=== PATIENT | male | born 1975 | race Caucasian/White ===

== ENCOUNTER 2016-09-02 16:17 | Emergency (ER) | payer SELFPAY ==
[~2016-09-02] VITALS: Ht 177.8 cm; Wt 90.7 kg
[~2016-09-02 16:17] MED LIST: AMOX-355 PO; CPR500T PO; DICL500C PO; HYDR-1231 PO; HYDR-3583 PO; HYDR-3714 PO; HYDR1TAB PO; NAPR-243 PO; PRX20T PO; SULF-222 PO; SULF1TAB35 PO; SULF1TAB38 PO; TRAM50TA2 PO; VANC5VIA5 IV
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
--- NOTE | 2016-09-02 17:07 | Diagnostic Imaging Report ---
EXAM: Three views of the left elbow. INDICATION: Left elbow Pain. FINDINGS: There is swelling in the posterior aspect of the elbow in the location of the olecranon and bursa. There is no significant widening of the anterior fat pad and no elevation of the posterior fat pad. No fracture or dislocation is seen. No radiopaque foreign body. IMPRESSION: Soft tissue swelling at the dorsal aspect at the elbow may relate to olecranon bursitis. Dictated by: Dictated on workstation # [id number]
[2016-09-02 17:15] LABS: BASOPHILS % (AUTO) 0 % (0-10); EOSINOPHILS # (AUTO) 0.1 10^3/uL (0.0-0.3); EOSINOPHILS % (AUTO) 1 % (0-10); LYMPHOCYTES # (AUTO) 2.5 X 10^3 (1.0-4.0); LYMPHOCYTES % (AUTO) 27 % (12-44); MEAN CORPUSCULAR HEMOGLOBIN 33 PG (25-34); MEAN CORPUSCULAR HGB CONC 35 G/DL (32-36); MEAN CORPUSCULAR VOLUME 94 FL (80-99); MEAN PLATELET VOLUME 10.4 FL (7.4-10.4); MONOCYTES % (AUTO) 11 % (0-12); NEUTROPHILS # (AUTO) 5.5 X 10^3 (1.8-7.8); NEUTROPHILS % (AUTO) 60 % (42-75); PLATELET COUNT 249 10^3/uL (130-400); RED BLOOD COUNT 4.46 10^6/uL (4.35-5.85); RED CELL DISTRIBUTION WIDTH 13.8 % (10.0-14.5); WHITE BLOOD COUNT 9.2 10^3/uL (4.3-11.0)
[2016-09-02 17:20] LABS: ERYTHROCYTE SEDIMENTATION RATE 13 MM/HR (0-15)
--- NOTE | 2016-09-02 17:21 | ED Upper Extremity ---
General Chief Complaint: Upper Extremity Stated Complaint: LEFT ELBOW PAIN Nursing Triage Note: L ELBOW PAIN AND SWELLING X3 MONTHS. HAS BEEN RECEIVING STEROID SHOTS WITH SOME RELIEF, BUT IS WORSE X3 DAYS. NOW C/O TINGLING TO HAND. Nursing Sepsis Screen: No Definite Risk History of Present Illness Time seen by provider: 16:40 Initial Comments Evaluation for left elbow pain, he is been seeing Carlos Arndt APRN for his left elbow pain. 10 weeks ago he had a steroid injection in the left elbow and then 6 weeks ago he had a second steroid injection in the left elbow. 2 weeks ago there was concern over possible infection he had an aspiration and culture of the left elbow and was started on Bactrim DS, He has taken 14 days of the Bactrim DS with continued symptoms of redness and pain in the left elbow Pain/Injury Location: right elbow Method of Injury: unknown Modifying Factors: Improves With Rest Allergies and Home Medications Allergies Coded Allergies: No Known Drug Allergies (Unverified , 08/25/11) Home Medications Cephalexin 500 Mg Capsule #28 500 MG PO QID Prescribed by: STEWART MUNGUIA on 09/02/161811 Hydrocodone Bit/Acetaminophen 1 Each Tablet #20 1 EACH PO Q4HR PRN Prescribed by: MARCIN CRAIG on 12/11/14 1012 Hydrocodone/Acetaminophen 1 Each Tablet #20 1 EACH PO Q4H PRN PRN PAIN Prescribed by: STEWART MUNGUIA on 09/02/16 181 Constitutional: no symptoms reported see HPI EENTM: no symptoms reported see HPI Respiratory: no symptoms reported see HPI Cardiovascular: no symptoms reported see HPI Gastrointestinal: see HPI Genitourinary: no symptoms reported see HPI Musculoskeletal: see HPI joint pain (left elbow) joint swelling (left olecranon bursa) muscle weakness (ulnar nerve distribution) Skin: see HPI other (erythema and warmth to left elbow) Psychiatric/Neurological: No Symptoms Reported See HPI Past Mowsckw-Lmftpy-Mvtxye Hx Patient Social History Alcohol Use: Regular Use Recreational Drug Use: No Smoking Status: Current Everyday Smoker Type Used: Cigarettes Recent Foreign Travel: No Contact w/Someone Who Travel: No Recent Infectious Disease Expo: No Recent Hopitalizations: No Immunizations Up To Date Tetanus Booster (TDap): Less than 5yrs Surgeries HX Surgeries: Yes (I/D LEFT HAND ABCESS, I/D RIGHT GROIN ABCESS) Surgeries: Vasectomy Respiratory Hx Respiratory Disorders: No Cardiovascular Hx Cardiac Disorders: No Neurological Hx Neurological Disorders: No Reproductive System Hx Reproductive Disorders: No Genitourinary Hx Genitourinary Disorders: No Gastrointestinal Hx Gastrointestinal Disorders: No Musculoskeletal Hx Musculoskeletal Disorders: No Endocrine Hx Endocrine Disorders: No HEENT HX ENT Disorders: No Cancer Hx Cancer: No Psychosocial Hx Psychiatric Problems: No Integumentary HX Skin/Integumentary Disorder: Yes (ABSCESS RIGHT THIGH) Blood Transfusions Hx Blood Disorders: No Reviewed Nursing Assessment Reviewed/Agree w Nursing PMH: Yes Family Medical History Significant Family History: No Pertinent Family Hx Family Medial History: Physical Exam Vital Signs Vital Sign - Last 12Hours 09/02/16 16:28 Temp 98.1 Pulse 83 Resp 18 B/P 145/101 Pulse Ox 97 Capillary Refill : Less Than 3 Seconds General Appearance: WD/WN no apparent distress HEENT: normal ENT inspection TMs normal pharynx normal Neck: non-tender full range of motion supple normal inspection Cardiovascular: normal peripheral pulses regular rate, rhythm Respiratory: chest non-tender lungs clear normal breath sounds Shoulder: normal inspection non-tender no evidence of injury normal ROM Elbow/Forearm: Left, bone tenderness, limited ROM (secondary to pain), pain, soft tissue tenderness, swelling (with fluctuance to the olecranon bursa and marked warmth) Wrist: Yes normal inspection, Yes non-tender, Yes no evidence of injury, Yes normal ROM Hand: normal inspection, Left (decreased sensation in ulnar nerve distribution) Neurologic/Tendon: normal motor functions sensory deficit (ulnar nerve distribution left upper extremity) Neurologic/Psychiatric: no motor/sensory deficits alert normal mood/affect oriented x 3 Skin: normal color warm/dry Lymphatic: no adenopathy other (2+ epitrochlear adenopathy left) Additional Procedures : Additional Procedures: Arthrocentesis Aspirating Progress The left elbow was prepped with Betadine 1 ml lidocaine 1% was used to anesthetize the skin. Using sterile technique, olecranon bursa was aspirated 1 ml of serosanguineous fluid was removed. Fluid was sent for cultures, aerobic and anaerobic. A bulky sterile dressing was applied with an Jaiden wrap. The patient did report improvement sensation ulnar nerve distribution left hand after the aspiration. Progress/Results/Core Measures Results/Orders Lab Results Laboratory Tests Test 09/02/16 16:53 Range/Units Alanine Aminotransferase (ALT/SGPT) 21 0-55 U/L Albumin 4.4 3.2-4.5 G/DL Alkaline Phosphatase 57 40-136 U/L Anion Gap 10 5-14 MMOL/L Aspartate Amino Transf (AST/SGOT) 22 5-34 U/L BUN/Creatinine Ratio 10 Basophils # (Auto) 0.0 0.0-0.1 10^3/uL Basophils (%) (Auto) 0 0-10 % Blood Urea Nitrogen 13 7-18 MG/DL C-Reactive Protein High Sensitivity 1.08 H 0.00-0.50 MG/DL Calcium Level 9.3 8.5-10.1 MG/DL Carbon Dioxide Level 23 21-32 MMOL/L Chloride Level 105 98-107 MMOL/L Creatinine 1.25 0.60-1.30 MG/DL Eosinophils # (Auto) 0.1 0.0-0.3 10^3/uL Eosinophils (%) (Auto) 1 0-10 % Erythrocyte Sedimentation Rate 13 0-15 MM/HR Estimat Glomerular Filtration Rate > 60 Glucose Level 91 70-105 MG/DL Hematocrit 42 40-54 % Hemoglobin 14.6 13.3-17.7 G/DL Lymphocytes # (Auto) 2.5 1.0-4.0 X 10^3 Lymphocytes (%) (Auto) 27 12-44 % Mean Corpuscular Hemoglobin 33 25-34 PG Mean Corpuscular Hemoglobin Concent 35 32-36 G/DL Mean Corpuscular Volume 94 80-99 FL Mean Platelet Volume 10.4 7.4-10.4 FL Monocytes # (Auto) 1.0 0.0-1.0 X 10^3 Monocytes (%) (Auto) 11 0-12 % Neutrophils # (Auto) 5.5 1.8-7.8 X 10^3 Neutrophils (%) (Auto) 60 42-75 % Platelet Count 249 130-400 10^3/uL Potassium Level 4.2 3.6-5.0 MMOL/L Red Blood Count 4.46 4.35-5.85 10^6/uL Red Cell Distribution Width 13.8 10.0-14.5 % Sodium Level 138 135-145 MMOL/L Total Bilirubin 0.6 0.1-1.0 MG/DL Total Protein 7.2 6.4-8.2 G/DL White Blood Count 9.2 4.3-11.0 10^3/uL My Orders Orders-STEWART MUNGUIA Elbow, Left, 3 Views (09/02/16 16:50) Cbc With Automated Diff (09/02/16 16:50) Comprehensive Metabolic Panel (09/02/16 16:50) Hs C Reactive Protein (09/02/16 16:50) Erythrocyte Sedimentation Rate (09/02/16 16:50) Lidocaine 1% Injection (Xylocaine 1% Inj (09/02/16 17:25) Wound Culture (09/02/16 17:41) Anaerobic Culture (09/02/16 17:41) Ceftriaxone Injection (Rocephin Injectio (09/02/16 18:15) Medications Given in ED Current Medications Medications Dose Ordered Sig/Gianna Route Start Time Stop Time Status Last Admin Dose Admin Ceftriaxone Sodium/Sodium Chloride 50 ml @ 100 mls/hr ONCE ONCE IV 09/02/16 18:15 09/02/16 18:41 DC 09/02/16 18:17 100 MLS/HR Vital Signs/I&O Vital Sign - Last 12Hours 09/02/16 09/02/16 16:28 18:40 Temp 98.1 98.1 Pulse 83 83 Resp 18 18 B/P 145/101 Pulse Ox 97 97 Blood Pressure Mean: 116 Progress Note : Time: 16:40 Progress Note Initial evaluation for olecranon bursitis left elbow, recommended x-ray and labs. Reevaluate after these are completed. Spoke with [facility] he had a culture and sensitivity done on August which grew staph aureus susceptible to the Bactrim DS that he's been taking. 1655 CBC normal with a WBC of 9.2; ESR 13; CRP 1.08; discussed results with the patient recommended aspiration of the left olecranon bursa, he verbalized agreement with this plan, a culture will be obtained from the fluid. 1730 discussed patient by phone with Dr. Rae, agreed to see the patient early next week for evaluation. Diagnostic Imaging Diagonstic Imaging: Xray Plain Films/CT/US/NM/MRI: elbow Comments NAME: JREI DAVE [facility] REC#: [id number] PT STATUS: REG ER : 1975 PHYSICIAN: STEWART MUNGUIA ADMIT DATE: 09/02/16/ER Draft Date of Exam:09/02/16 ELBOW, LEFT, 3 VIEWS EXAM: Three views of the left elbow. INDICATION: Left elbow Pain. FINDINGS: There is swelling in the posterior aspect of the elbow in the location of the olecranon and bursa. There is no significant widening of the anterior fat pad and no elevation of the posterior fat pad. No fracture or dislocation is seen. No radiopaque foreign body. IMPRESSION: Soft tissue swelling at the dorsal aspect at the elbow may relate to olecranon bursitis. Dictated on workstation # [id number] Dict: 09/02/16 1704 Trans: 09/02/16 1706 [facility] [id number] Interpreted by: AJIT CARRASCO MD Electronically signed by: Departure Impression Impression: Primary Impression: Olecranon bursitis of left elbow Disposition: 01 HOME, SELF-CARE Condition: Improved Departure-Patient Inst. Decision time for Depature: 17:50 Referrals: NO,LOCAL PHYSICIAN (PCP/Family) Primary Care Physician Patient Instructions: Olecranon Bursitis (DC) Add. Discharge Instructions: All discharge instructions reviewed with patient and/or family. Voiced understanding. Call Dr. Rae's office tomorrow, [phone] for appointment on 09/06/2016 or . Warm moist compressions to left elbow 10 minutes every 2-3 hours Return to emergency department if elbow pain worsens, the picture greater than 101, new complaints or concerns. Scripts Hydrocodone/Acetaminophen (Hydrocodon -Acetaminophen 5-325)1 Each Tablet1 Each PO Q4H PRN PAIN #20 TAB Ref 0 Prov:STEWART MUNGUIA 09/02/16 Cephalexin (Keflex)500 Mg [id number] Mg PO QID #28 CAP Prov:STEWART MUNGUIA 09/02/16 Copy Copies To 1: MARSHALL RAE MD Copies To 2: YVETTE RIVERA MD, AMY ARNP Sep 02, 2016 17:21
[2016-09-02] MEDS ORDERED: LIDOCAINE 1% INJ 20 ML (XYLOCAINE) VIAL INJ STA (17:25)
[2016-09-02 17:26] LABS: ALANINE AMINOTRANSFERASE 21 U/L (0-55); ALBUMIN 4.4 G/DL (3.2-4.5); ANION GAP 10 MMOL/L (5-14); ASPARTATE AMINO TRANSFERASE 22 U/L (5-34); BILIRUBIN,TOTAL 0.6 MG/DL (0.1-1.0); BLOOD UREA NITROGEN 13 MG/DL (7-18); BUN/CREATININE RATIO 10; CALCIUM 9.3 MG/DL (8.5-10.1); CARBON DIOXIDE 23 MMOL/L (21-32); CHLORIDE 105 MMOL/L (98-107); CREATININE SERUM 1.25 MG/DL (0.60-1.30); GFR ESTIMATED > 60; GLUCOSE 91 MG/DL (70-105); POTASSIUM 4.2 MMOL/L (3.6-5.0); SODIUM 138 MMOL/L (135-145); TOTAL PROTEIN 7.2 G/DL (6.4-8.2); hs C REACTIVE PROTEIN 1.08 MG/DL (0.00-0.50)
[2016-09-02] MEDS ORDERED: HYDR-3812 PO (18:12)
[2016-09-02] MEDS ORDERED: CEPH-507 PO (18:12)
[2016-09-02] MEDS ORDERED: cefTRIAXone INJECTION 1,000 MG in NS (IVPB) 50 ML IV ONE (18:15)
[2016-09-02 18:40] VITALS: BP 145/101
== END 2016-09-02 18:41 | disposition home or self-care (01) ==
LOC: EDUNIT# 16:17 → ER 16:19
DX: M70.32 Other bursitis of elbow, left elbow (principal); F17.210 Nicotine dependence, cigarettes, uncomplicated
CPT/HCPCS: 36415; 73080; 80053; 85025; 85652; 86141; 87070; 87075; 87077; 87186; 87205; 96365; 99284

== ENCOUNTER 2017-01-01 21:47 | Emergency (ER) | payer SELFPAY ==
[~2017-01-01] VITALS: Ht 177.8 cm; Wt 83.9 kg
[~2017-01-01 21:47] MED LIST changes: +CEPH-507 PO; +HYDR-3812 PO
[2017-01-01] MEDS ORDERED: HYDROcodone/APAP 7.5 MG/325 MG (LORTAB, LORCET PLUS) TABLET PO STA (22:13)
--- NOTE | 2017-01-01 22:33 | ED Lower Extremity ---
General Chief Complaint: Lower Extremity Stated Complaint: R LEG PAIN Nursing Triage Note: left ankle pain [place] Nursing Sepsis Screen: No Definite Risk History of Present Illness Time seen by provider: 22:10 Initial Comments Evaluation for left ankle pain. Patient reports 2 previous fractures to his right ankle. He is currently being treated for bursitis to his left elbow, using hydrocodone 10 mg Onset: this afternoon Pain/Injury Location: right ankle Method of Injury: fell Modifying Factors: Improves With Immobilization, Improves With Pain Medication , Improves With Rest Allergies and Home Medications Allergies Coded Allergies: No Known Drug Allergies (Unverified , 08/25/11) Home Medications Hydrocodone/Acetaminophen 1 Each Tablet, 1 EACH PO Q4H PRN for PAIN, #20 Ref 0 Prescribed by: STEWART MUNGUIA on 09/02/161811 Constitutional: no symptoms reported, see HPI Musculoskeletal: see HPI, joint pain (right ankle), joint swelling All Other Systems Reviewed Negative Unless Noted: Yes Past Ctzhngo-Mstbpe-Jbhpms Hx Patient Social History Alcohol Use: Occasionally Uses Recreational Drug Use: No Smoking Status: Current Everyday Smoker Type Used: Cigarettes 2nd Hand Smoke Exposure: Yes Recent Foreign Travel: No Contact w/Someone Who Travel: No Recent Infectious Disease Expo: No Recent Hopitalizations: No Immunizations Up To Date Tetanus Booster (TDap): Less than 5yrs Seasonal Allergies Seasonal Allergies: No Surgeries HX Surgeries: Yes (I/D LEFT HAND ABCESS, I/D RIGHT GROIN ABCESS) Surgeries: Vasectomy Respiratory Hx Respiratory Disorders: No Cardiovascular Hx Cardiac Disorders: No Neurological Hx Neurological Disorders: No Reproductive System Hx Reproductive Disorders: No Genitourinary Hx Genitourinary Disorders: No Gastrointestinal Hx Gastrointestinal Disorders: No Musculoskeletal Hx Musculoskeletal Disorders: No Endocrine Hx Endocrine Disorders: No HEENT HX ENT Disorders: No Cancer Hx Cancer: No Psychosocial Hx Psychiatric Problems: No Integumentary HX Skin/Integumentary Disorder: Yes (ABSCESS RIGHT THIGH) Blood Transfusions Hx Blood Disorders: No Reviewed Nursing Assessment Reviewed/Agree w Nursing PMH: Yes Family Medical History Significant Family History: No Pertinent Family Hx Family Medial History: Physical Exam Vital Signs Vital Sign - Last 12Hours 01/01/17 21:57 Temp 97.1 Pulse 98 Resp 18 B/P (MAP) 181/112 Pulse Ox 99 O2 Delivery Room Air Capillary Refill : Less Than 3 Seconds General Appearance: WD/WN, no apparent distress HEENT: PERRL/EOMI, normal ENT inspection, TMs normal, pharynx normal Neck: non-tender, full range of motion, supple, normal inspection Cardiovascular: normal peripheral pulses, regular rate, rhythm, no murmur Respiratory: chest non-tender, lungs clear, normal breath sounds Gastrointestinal: normal bowel sounds, non tender, soft Ankles: left ankle non-tender, left ankle normal inspection, left ankle normal range of motion, right ankle limited range of motion (secondary to pain), right ankle pain (distal fibula and deltoid ligament), right ankle soft tissue tenderness, right ankle swelling Neurologic/Tendon: normal sensation, normal motor functions, normal tendon functions, responds to pain Neurologic/Psychiatric: no motor/sensory deficits, alert, normal mood/affect, oriented x 3 Skin: normal color, warm/dry Progress/Results/Core Measures Results/Orders My Orders Orders - STEWART MUNGUIA Ankle, Right, 3 Views (01/01/17 21:56) Hydrocodone/Apap 7.5/325 Tab (Lortab 7. (01/01/17 22:13) Ibuprofen Tablet (Motrin Tablet) (01/01/17 23:01) Vital Signs/I&O Vital Sign - Last 12Hours 01/01/17 01/01/17 01/01/17 21:57 22:17 23:10 Temp 97.1 97.1 97.1 Pulse 98 82 Resp 18 18 B/P (MAP) 181/112 Pulse Ox 99 94 O2 Delivery Room Air Room Air Blood Pressure Mean: 135 Progress Note : Time: 22:10 Progress Note Initial evaluation for right ankle injury. Will obtain x-rays and reevaluate. 2229 x-ray show acute nondisplaced fracture in the distal fibula, chronic degenerative changes and healed fracture also present in the distal fibula. Joint spaces overall maintained in the right ankle no injuries to the medial aspect of the ankle. Discussed findings with the patient recommended a Cam Walker boot weightbearing as tolerated and follow-up with orthopedics. The patient agreed with this as he is seeing Jose Rao APRN in the past for his orthopedic concerns. Per K Tracs patient received hydrocodone/APAP 10/325 on 12/15/16 #112. Departure Impression Impression: Primary Impression: Fracture of distal fibula Qualified Codes: S82.831A - Other fracture of upper and lower end of right fibula, initial encounter for closed fracture Additional Impression: Ankle sprain Qualified Codes: S93.421A - Sprain of deltoid ligament of right ankle, initial encounter Disposition: 01 HOME, SELF-CARE Condition: Improved Departure-Patient Inst. Decision time for Depature: 22:30 Referrals: NO,LOCAL PHYSICIAN (PCP/Family) Primary Care Physician Patient Instructions: Ankle Fracture (DC), Ankle Sprain (DC) Add. Discharge Instructions: Wear boot at all times on right lower extremity. Ice to right ankle and elevate 20 minutes every 2 hours. Follow-up with orthopedics, at [facility]. Ibuprofen 600 mg every 8 hours for pain. Use hydrocodone that you have at home for pain Return to emergency department for increased pain, numbness or tingling in the right foot, or new problems. Schedule appointment this week with Carlos Arndt APRN for follow-up on hypertension. All discharge instructions reviewed with patient and/or family. Voiced understanding. Copy Copies To 1: ARMIDA RAO Copies To 2: YVETTE RIVERA MD, AMY ARNP Jan 01, 2017 22:33
[2017-01-01] MEDS ORDERED: IBUPROFEN 800 MG (MOTRIN) TAB PO STA (23:01)
[2017-01-01 23:10] VITALS: BP 167/113
--- NOTE | 2017-01-02 08:32 | Diagnostic Imaging Report ---
INDICATION: Ankle pain. 3 views were obtained. FINDINGS: There is an old healed fracture of the distal fibula. New acute nondisplaced fracture through this area cannot be excluded however as there is a persistent vague oblique lucency. There is some overlying soft tissue swelling. Plafonds and talar dome are intact. Ankle mortise is symmetric. IMPRESSION: Previously healed fracture of distal fibula with persistent lucency. Refracture through this area cannot be excluded. Additionally some overlying soft tissue swelling. Recommend clinical correlation. Dictated by: Dictated on workstation # [id number]
== END 2017-01-01 23:10 | disposition home or self-care (01) ==
LOC: EDUNIT# 21:47 → ER 21:49
DX: S82.831A Other fracture of upper and lower end of right fibula, initial encounter for closed fracture (principal); S93.402A Sprain of unspecified ligament of left ankle, initial encounter; F17.210 Nicotine dependence, cigarettes, uncomplicated; Z98.52 Vasectomy status; W17.89XA Other fall from one level to another, initial encounter; Y93.39 Activity, other involving climbing, rappelling and jumping off
CPT/HCPCS: 73610; 99283

== ENCOUNTER 2018-04-20 11:30 | Emergency (ER) | payer SELFPAY ==
[~2018-04-20] VITALS: Ht 177.8 cm; Wt 83.9 kg
[~2018-04-20 11:30] MED LIST changes: +ACHD5005 PO; -HYDR-3812 PO
--- OUTSIDE RECORDS SUMMARY | 2018-04-20 11:34 | XMS REPORT ---
Author Author CRISTOBAL CLEMENTS Organization [facility] Address [address] [place] [address] Care Team Providers Care Longwall Headgate Operator Name Role Phone CRISTOBAL CLEMENTS Unavailable PROBLEMS Type Condition ICD9-CM Code NQJ51-QC Code Onset Dates Condition Status SNOMED Code Problem Other chronic pain G89.29 Active 83946804 Problem Other chronic pain G89.29 Active 23934060 ALLERGIES No Information ENCOUNTERS Encounter Location Date Diagnosis [facility] [id number] [place] [address] [id number] Jun, Dental caries K02.9 [facility] [id number] [place] [address] [id number] Jun, Dental examination Z01.20 [facility] [id number] [place] [address] 32126- 2368 Feb, Other chronic pain G89.29 [facility] [address] [address]- 9600 Feb, Other chronic pain G89.29 [facility] [id number] [place] [address] 92908- 2831 Feb, [facility] [id number] [place] [address] 30387- 1067 Jan, Other chronic pain G89.29 [facility] [id number] [place] [address] 28905- 0315 Dec, Other chronic pain G89.29 [facility] [address] 68692- 2388 Dec, [facility] [id number] [place] [address] 45780- 0618 Nov, Other chronic pain G89.29 [facility] [address], [place] [address] 3983 Nov, Other chronic pain G89.29 [facility] [id number] [place] [address] 78712- 1866 October, Other chronic pain G89.29 [facility] [address] [place] [address] 78391- 3316 Sep, Other chronic pain G89.29 [facility] [id number] [place] [address] 17444 2546 Sep, Left elbow pain M25.522 and Other chronic pain G89.29 [facility] [id number] [place] [address] 82821- 3696 Aug, Other chronic pain G89.29 [facility] [id number] [place] [address] 79679- 0486 Aug, [facility] [id number] [place] [address] 67843- 0326 Aug, [facility] [id number] [place] [address] 75587- 8697 Aug, Abscess of elbow L02.419 [facility] [id number] [place] [address] 24685- 6310 Jul, Other chronic pain G89.29 [facility] [id number] [place] [address] 88085- 3838 Jul, Other chronic pain G89.29 and Bursitis of left elbow M70.32 [facility] [id number] [place] [address] 31890- 5429 Jun, Other bursal cyst, left elbow M71.322 ; Low back pain M54.5 and Other chronic pain G89.29 [facility] [address] [place] [address] 51322 2546 May, Other chronic pain G89.29 and Pain in left elbow M25.522 [facility] [id number] [place] [address] [id number] May, Dental caries K02.9 [facility] [address] 989695- 5286 May, Cellulitis of left upper extremity L03.114 [facility] [address] [id number] Mar, Encounter for dental examination Z01.20 [facility] [address] 033387 -5580 Jan, Poison delilah L23.7 [facility] [address] [id number] Sep, Dental examination Z01.20 [facility] [id number] [place] [address] 074022 -1376 Sep, Poison delilah dermatitis L23.7 [facility] [id number] [place] [address] 08577- 7894 Jul, Headache R51 ; Alcohol abuse F10.10 ; Marijuana abuse F12.10 and 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 [facility] [id number] [place] [address] 20991- 0741 Sep, [facility] [id number] [place] [address] 03739- 0323 Sep, [facility] [id number] [place] [address] 59755- 4664 Aug, [facility] [address] 62558- 8976 Aug, [facility] [id number] [place] [address] 38849- 5526 Aug, [facility] [id number] [place] [address] 38284- 6149 Aug, [facility] [address] [id number] [address]- 5228 Jul, 2014 [facility] [place] [facility] [address] [id number] [place] [address]- 6216 Jul, 2014 [facility] [place] [facility] [address] [id number] [place] [address]- 8696 16 Jul, 2014 [facility] [place] [facility] [address] [id number] [place] [address]- 7739 Jul, 2014 [facility] [place] [facility] [address] [id number] [place] [address]- 7426 Jul, 2014 [facility] [place] [facility] [address] [id number] [place] [address]- 2890 Jul, 2014 [facility] [place] [facility] [address] [id number] [place] [address]- 9187 Aug, [facility] [place] [facility] [address] [id number] [place] [address]- 1599 Aug, [facility] [place] [facility] [address] [id number] [place] [address]- 6981 Jul, [facility] [place] [facility] [address] [id number] [place] [address]- 7440 Jul, [facility] [place] [facility] [address] [id number] [place] [address]- 4110 Jun, [facility] [place] [facility] [address] [id number] [place] [address]- 0126 Jun, [facility] [place] [facility] [address] [id number] [place] [address]- 7131 Jun, [facility] [place] [facility] [address] [id number] [place] [address]- 1612 Jun, [facility] [place] [facility] [address] [id number] [place] [address]- 4854 Jun, [facility] [place] [facility] [address] [id number], [place] [address]- 8555 Jun, [facility] [place] [facility] [address] [id number] [place] [address]- 4334 Jun, [facility] [place] [facility] [address] [id number] [place] [address]- 5980 Jun, [facility] [place] [facility] [address] [id number] [place] [address]- 2311 May, [facility] [place] [facility] [address] [id number] [place] [address]- 2755 May, [facility] [place] [facility] [address] [id number] [place] 1219 Apr, [facility] [place] [facility] [address] [id number] [place] [address]- 5969 Apr, [facility] [place] [facility] [address] [id number] [place] [address]- 3234 Mar, [facility] [place] [facility] [address] [id number] [place] [address]- 7374 Mar, [facility] [place] [facility] [address] [id number] [place] [address]- 5445 Mar, [facility] [place] [facility] [address] [id number] [place] [address]- 3073 Mar, [facility] [place] [facility] [address] [id number], [place] [address]- 8022 Feb, [facility] [place] [facility] [address] [id number], [place] [address]- 3540 Dec, [facility] [place] [facility] [address] [id number] [place] [address]- 4771 Dec, [facility] [place] [facility] [address] [id number] [place] [address]- 4848 Nov, [facility] [place] [facility] [address] [id number] [place] [address]- 9929 Nov, [facility] [place] [facility] [address] [facility] [id number], [place] [address]- 2546 Nov, [facility] [address] [facility] [id number], [place] [address]- 7566 October, [facility] [address] [facility] [id number], [place] [address]- 2546 October, [facility] [address] [facility] [id number], [place] [address]- 2546 Aug, [facility] [address] [facility] [id number], [place] [address]- 2546 Aug, [facility] [address] [facility] [id number], [place] [address]- 5996 Jul, [facility] [address] [facility] [id number], [place] [address]- 4386 Jul, [facility] [address] [facility] [id number], [place] [address]- 4178 Apr, [facility] [address] [facility] [id number], [place] [address]- 4313 Apr, [facility] [address] [facility] [id number], [place] [address]- 1016 Mar, [facility] [address] [facility] [id number], [place] [address]- 7430 Dec, IMMUNIZATIONS No Known Immunizations SOCIAL HISTORY Never Assessed REASON FOR VISIT Controlled Med Refill 03/08/17 PLAN OF CARE VITAL SIGNS MEDICATIONS No Known Medications RESULTS No Results PROCEDURES No Known procedures INSTRUCTIONS MEDICATIONS ADMINISTERED No Known Medications MEDICAL (GENERAL) HISTORY Type Description Date Medical History Hx MRSA Surgical History vasectomy Surgical History surgery for Right leg infection removed Hospitalization History Hospitalization for surgery only
--- OUTSIDE RECORDS SUMMARY | 2018-04-20 11:34 | XMS REPORT ---
Author Author CRISTOBAL CLEMENTS Organization [facility] Address [address] [place] [address] Care Team Providers Care Meat Manager Name Role Phone CRISTOBAL CLEMENTS Unavailable PROBLEMS Type Condition ICD9-CM Code IJD56-UD Code Onset Dates Condition Status SNOMED Code Problem Other chronic pain G89.29 Active 23004152 Problem Other chronic pain G89.29 Active 11845506 Problem Encounter for dental examination Z01.20 Active 473885949 ALLERGIES Substance Reaction Event Type Date Status Latex Unknown Non Drug Allergy Jun, Active SOCIAL HISTORY No smoking Hx information available PLAN OF CARE VITAL SIGNS Height 70 in 2016-07-16 Weight 193 lbs 2016-07-16 Temperature 98.3 degrees Fahrenheit 2016-07-16 Heart Rate 80 bpm 2016-07-16 Respiratory Rate 18 2016-07-16 BMI 27.69 kg/m2 2016-07-16 Blood pressure systolic 130 mmHg 2016-07-16 Blood pressure diastolic 100 mmHg 2016-07-16 MEDICATIONS Medication Instructions Dosage Frequency Start Date End Date Duration Status [place] 10-325 MG Orally every 6 hrs 1 tablet as needed 6h Jun, Active RESULTS No Results PROCEDURES Procedure Date Ordered Related Diagnosis Body Site Office Visit, Est Pt., Level 3 Jul 16, 2016 IMMUNIZATIONS No Known Immunizations
--- OUTSIDE RECORDS SUMMARY | 2018-04-20 11:34 | XMS REPORT ---
Author Author CRISTOBAL CLEMENTS Organization [facility] Address [address] [place] [address] Care Team Providers Care Dewer Name Role Phone CRISTOBAL CLEMENTS Unavailable PROBLEMS Type Condition ICD9-CM Code LTQ56-SD Code Onset Dates Condition Status SNOMED Code Problem Other chronic pain G89.29 Active 17285304 Problem Other chronic pain G89.29 Active 90364792 ALLERGIES No Information ENCOUNTERS Encounter Location Date Diagnosis [facility] [id number] [place] [address] [id number] Jun, Dental caries K02.9 [facility] [id number] [place] [address] [id number] Jun, Dental examination Z01.20 [facility] [id number] [place] [address] 37993- 4080 Feb, Other chronic pain G89.29 [facility] [id number] [place] [address] 02598- 6809 Feb, Other chronic pain G89.29 [facility] [id number] [place] [address] 65259- 2422 Feb, [facility] [id number] [place] [address] 08248- 0415 Jan, Other chronic pain G89.29 [facility] [id number] [place] [address] 34019- 0328 Dec, Other chronic pain G89.29 [facility] [address] 89632- 0126 Dec, [facility] [id number] [place] [address] 59251- 6837 Nov, Other chronic pain G89.29 [facility] [address], [place] [address]- 5580 Nov, Other chronic pain G89.29 [facility] [id number] [place] [address] 45654- 9066 October, Other chronic pain G89.29 [facility] [address] [place] [address] 49758- 3916 Sep, Other chronic pain G89.29 [facility] [id number] [place] [address] 48264 2546 Sep, Left elbow pain M25.522 and Other chronic pain G89.29 [facility] [id number] [place] [address] 60194- 6826 Aug, Other chronic pain G89.29 [facility] [id number] [place] [address] 52864- 0516 Aug, [facility] [id number] [place] [address] 68021- 6472 Aug, [facility] [id number] [place] [address] 60155- 8153 Aug, Abscess of elbow L02.419 [facility] [id number] [place] [address] 84873- 1001 Jul, Other chronic pain G89.29 [facility] [id number] [place] [address] 20651- 7627 Jul, Other chronic pain G89.29 and Bursitis of left elbow M70.32 [facility] [id number] [place] [address] 80107- 3466 Jun, Other bursal cyst, left elbow M71.322 ; Low back pain M54.5 and Other chronic pain G89.29 [facility] [address] [place] [address] 81341 2546 May, Other chronic pain G89.29 and Pain in left elbow M25.522 [facility] [id number] [place] [address] [id number] May, Dental caries K02.9 [facility] [address] 053651- 9326 May, Cellulitis of left upper extremity L03.114 [facility] [address] [id number] Mar, Encounter for dental examination Z01.20 [facility] [address] 599032 -8907 Jan, Poison delilah L23.7 [facility] [address] [id number] Sep, Dental examination Z01.20 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 [facility] [id number] [place] [address] 60931- 7502 Sep, [facility] [id number] [place] [address] 21843- 7471 Sep, [facility] [id number] [place] [address] 48912- 7630 Aug, [facility] [address] 67019- 3582 Aug, [facility] [id number] [place] [address] 05906- 9543 Aug, [facility] [id number] [place] [address] 40898- 8807 Aug, [facility] [address] [id number] [address]- 9154 Jul, 2014 [facility] [place] [facility] [address] [id number] [place] [address]- 9643 Jul, 2014 [facility] [place] [facility] [address] [id number] [place] [address]- 9136 16 Jul, 2014 [facility] [place] [facility] [address] [id number] [place] [address]- 3737 Jul, 2014 [facility] [place] [facility] [address] [id number] [place] [address]- 4374 Jul, 2014 [facility] [place] [facility] [address] [id number] [place] [address]- 7519 Jul, 2014 [facility] [place] [facility] [address] [id number] [place] [address]- 7129 Aug, [facility] [place] [facility] [address] [id number] [place] [address]- 3357 Aug, [facility] [place] [facility] [address] [id number] [place] [address]- 8751 Jul, [facility] [place] [facility] [address] [id number] [place] [address]- 3199 Jul, [facility] [place] [facility] [address] [id number] [place] [address]- 7639 Jun, [facility] [place] [facility] [address] [id number] [place] [address]- 3959 Jun, [facility] [place] [facility] [address] [id number] [place] [address]- 3377 Jun, [facility] [place] [facility] [address] [id number] [place] [address]- 7040 Jun, [facility] [place] [facility] [address] [id number] [place] [address]- 6078 Jun, [facility] [place] [facility] [address] [id number], [place] [address]- 4712 Jun, [facility] [place] [facility] [address] [id number] [place] [address]- 3630 Jun, [facility] [place] [facility] [address] [id number] [place] [address]- 6627 Jun, [facility] [place] [facility] [address] [id number] [place] [address]- 5698 May, [facility] [place] [facility] [address] [id number] [place] [address]- 0317 May, [facility] [place] [facility] [address] [id number] [place] 3985 Apr, [facility] [place] [facility] [address] [id number] [place] [address]- 9275 Apr, [facility] [place] [facility] [address] [id number] [place] [address]- 1061 Mar, [facility] [place] [facility] [address] [id number] [place] [address]- 5609 Mar, [facility] [place] [facility] [address] [id number] [place] [address]- 2166 Mar, [facility] [place] [facility] [address] [id number] [place] [address]- 2457 Mar, [facility] [place] [facility] [address] [id number], [place] [address]- 9291 Feb, [facility] [place] [facility] [address] [id number], [place] [address]- 2140 Dec, [facility] [place] [facility] [address] [id number] [place] [address]- 4028 Dec, [facility] [place] [facility] [address] [id number] [place] [address]- 3894 Nov, [facility] [place] [facility] [address] [id number] [place] [address]- 9854 Nov, [facility] [place] [facility] [address] [facility] [id number], [place] [address]- 2546 Nov, [facility] [address] [facility] [id number], [place] [address]- 3836 October, [facility] [address] [facility] [id number], [place] [address]- 2546 October, [facility] [address] [facility] [id number], [place] [address]- 2546 Aug, [facility] [address] [facility] [id number], [place] [address]- 2546 Aug, [facility] [address] [facility] [id number], [place] [address]- 2966 Jul, [facility] [address] [facility] [id number], [place] [address]- 3056 Jul, [facility] [address], [place] [address]- 8866 Apr, [facility] [address] [facility] [id number], [place] [address]- 6632 Apr, [facility] [id number] [address]- 9836 Mar, [facility] [address] [id number] [address]- 2107 Dec, IMMUNIZATIONS No Known Immunizations SOCIAL HISTORY Never Assessed REASON FOR VISIT Controlled Med Refill 01/11/17 PLAN OF CARE VITAL SIGNS MEDICATIONS Medication Instructions Dosage Frequency Start Date End Date Duration Status [place] 10-325 MG Orally every 6 hrs 1 tablet as needed 6h Dec, 28 days Active RESULTS No Results PROCEDURES No Known procedures INSTRUCTIONS MEDICATIONS ADMINISTERED No Known Medications MEDICAL (GENERAL) HISTORY Type Description Date Medical History Hx MRSA Surgical History vasectomy Surgical History surgery for Right leg infection removed Hospitalization History Hospitalization for surgery only
--- OUTSIDE RECORDS SUMMARY | 2018-04-20 11:34 | XMS REPORT ---
Author Author CRISTOBAL CLEMENTS Organization [facility] Address [address] [place] [address] Care Team Providers Care Curve Saw Operator Name Role Phone CRISTOBAL CLEMENTS Unavailable PROBLEMS Type Condition ICD9-CM Code HII86-ZJ Code Onset Dates Condition Status SNOMED Code Problem Other chronic pain G89.29 Active 13996076 Problem Other chronic pain G89.29 Active 10563555 ALLERGIES No Information ENCOUNTERS Encounter Location Date Diagnosis [facility] [id number] [place] [address] [id number] Jun, Dental caries K02.9 [facility] [id number] [place] [address] [id number] Jun, Dental examination Z01.20 [facility] [id number] [place] [address] 77889- 5586 Feb, Other chronic pain G89.29 [facility] [address] [address]- 2605 Feb, Other chronic pain G89.29 [facility] [id number] [place] [address] 27184- 2902 Feb, [facility] [id number] [place] [address] 53810- 8840 Jan, Other chronic pain G89.29 [facility] [id number] [place] [address] 17625- 1527 Dec, Other chronic pain G89.29 [facility] [address] 48923- 0774 Dec, [facility] [id number] [place] [address] 62065- 3465 Nov, Other chronic pain G89.29 [facility] [address] [address] 7509 Nov, Other chronic pain G89.29 [facility] [id number] [place] [address] 10782- 6796 October, Other chronic pain G89.29 [facility] [id number] [place] [address] 95431- 5056 Sep, Other chronic pain G89.29 [facility] [id number] [place] [address] 38933 2546 Sep, Left elbow pain M25.522 and Other chronic pain G89.29 [facility] [id number] [place] [address] 56800- 2436 Aug, Other chronic pain G89.29 [facility] [id number] [place] [address] 30345- 8216 Aug, [facility] [id number] [place] [address] 49952- 0408 Aug, [facility] [id number] [place] [address] 56466- 6719 Aug, Abscess of elbow L02.419 [facility] [id number] [place] [address] 37319- 7935 Jul, Other chronic pain G89.29 [facility] [id number] [place] [address] 86320- 8240 Jul, Other chronic pain G89.29 and Bursitis of left elbow M70.32 [facility] [id number] [place] [address] 25032- 2789 Jun, Other bursal cyst, left elbow M71.322 ; Low back pain M54.5 and Other chronic pain G89.29 [facility] [id number] [place] [address] 08962 2546 May, Other chronic pain G89.29 and Pain in left elbow M25.522 [facility] [id number] [place] [address] [id number] May, Dental caries K02.9 [facility] [address] 999267- 4266 May, Cellulitis of left upper extremity L03.114 [facility] [address] [id number] Mar, Encounter for dental examination Z01.20 [facility] [address] 662459 -4858 Jan, Poison delilah L23.7 [facility] [address] [id number] Sep, Dental examination Z01.20 [facility] [id number] [place] [address] 081515 -3786 Sep, Poison delilah dermatitis L23.7 [facility] [id number] [place] [address] 51538- 9380 Jul, Headache R51 ; Alcohol abuse F10.10 ; Marijuana abuse F12.10 and 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 [facility] [id number] [place] [address] 88006- 6713 Sep, [facility] [id number] [place] [address] 02485- 3860 Sep, [facility] [id number] [place] [address] 02659- 7221 Aug, [facility] [address] 38509- 3851 Aug, [facility] [id number] [place] [address] 56534- 6434 Aug, [facility] [id number] [place] [address] 88821- 4077 Aug, [facility] [id number] [place] [address]- 5523 Jul, 2014 [facility] [place] [facility] [address] [id number] [place] [address]- 4990 Jul, 2014 [facility] [place] [facility] [address] [id number] [place] [address]- 1716 16 Jul, 2014 [facility] [place] [facility] [address] [id number] [place] [address]- 2687 Jul, 2014 [facility] [place] [facility] [address] [id number] [place] [address]- 1265 Jul, 2014 [facility] [place] [facility] [address] [id number] [place] [address]- 2061 Jul, 2014 [facility] [place] [facility] [address] [id number] [place] [address]- 6331 Aug, [facility] [place] [facility] [address] [id number] [place] [address]- 2042 Aug, [facility] [place] [facility] [address] [id number] [place] [address]- 0479 Jul, [facility] [place] [facility] [address] [id number] [place] [address]- 8784 Jul, [facility] [place] [facility] [address] [id number] [place] [address]- 7923 Jun, [facility] [place] [facility] [address] [id number] [place] [address]- 9444 Jun, [facility] [place] [facility] [address] [id number] [place] [address]- 8873 Jun, [facility] [place] [facility] [address] [id number] [place] [address]- 0937 Jun, [facility] [place] [facility] [address] [id number] [place] [address]- 7136 Jun, [facility] [place] [facility] [address] [id number], [place] [address]- 4217 Jun, [facility] [place] [facility] [address] [id number] [place] [address]- 0164 Jun, [facility] [place] [facility] [address] [id number] [place] [address]- 7690 Jun, [facility] [place] [facility] [address] [id number] [place] [address]- 7619 May, [facility] [place] [facility] [address] [id number] [place] [address]- 7003 May, [facility] [place] [facility] [address] [id number] [place] 1386 Apr, [facility] [place] [facility] [address] [id number] [place] [address]- 7966 Apr, [facility] [place] [facility] [address] [id number] [place] [address]- 1917 Mar, [facility] [place] [facility] [address] [id number] [place] [address]- 5177 Mar, [facility] [place] [facility] [address] [id number] [place] [address]- 7084 Mar, [facility] [place] [facility] [address] [id number] [place] [address]- 7996 Mar, [facility] [place] [facility] [address] [id number], [place] [address]- 7206 Feb, [facility] [place] [facility] [address] [id number], [place] [address]- 0981 Dec, [facility] [place] [facility] [address] [id number] [place] [address]- 1851 Dec, [facility] [place] [facility] [address] [id number] [place] [address]- 1770 Nov, [facility] [place] [facility] [address] [id number] [place] [address]- 5626 Nov, [facility] [place] [facility] [address] [facility] [id number], [place] [address]- 2546 Nov, [facility] [address] [facility] [id number], [place] [address]- 7986 October, [facility] [address] [facility] [id number], [place] [address]- 2546 October, [facility] [address] [facility] [id number], [place] [address]- 7246 Aug, [facility] [address] [facility] [id number], [place] [address]- 2546 Aug, [facility] [address] [facility] [id number], [place] [address]- 4196 Jul, [facility] [address] [facility] [id number], [place] [address]- 1406 Jul, [facility] [address], [place] [address]- 6055 Apr, [facility] [address] [facility] [id number], [place] [address]- 7563 Apr, [facility] [address] [id number], [place] [address]- 2379 Mar, [facility] [address] [facility] [id number], [place] [address]- 8878 Dec, IMMUNIZATIONS No Known Immunizations SOCIAL HISTORY Never Assessed REASON FOR VISIT PLAN OF CARE VITAL SIGNS MEDICATIONS No Known Medications RESULTS No Results PROCEDURES No Known procedures INSTRUCTIONS MEDICATIONS ADMINISTERED No Known Medications MEDICAL (GENERAL) HISTORY Type Description Date Medical History Hx MRSA Surgical History vasectomy Surgical History surgery for Right leg infection removed Hospitalization History Hospitalization for surgery only
--- OUTSIDE RECORDS SUMMARY | 2018-04-20 11:35 | XMS REPORT ---
Author Author CRISTOBAL CLEMENTS Organization [facility] Address [address] [place] [address] Care Team Providers Care Creative Lead Name Role Phone CRISTOBAL CLEMENTS Unavailable PROBLEMS Type Condition ICD9-CM Code MWH18-QT Code Onset Dates Condition Status SNOMED Code Problem Other chronic pain G89.29 Active 01446837 Problem Other chronic pain G89.29 Active 50611401 Problem Encounter for dental examination Z01.20 Active 715859964 ALLERGIES No Information SOCIAL HISTORY Never Assessed PLAN OF CARE VITAL SIGNS MEDICATIONS Medication Instructions Dosage Frequency Start Date End Date Duration Status Spring 10-325 MG Orally every 6 hrs 1 tablet as needed 6h Aug, Active RESULTS No Results PROCEDURES No Known procedures IMMUNIZATIONS No Known Immunizations MEDICAL (GENERAL) HISTORY Type Description Date Medical History Hx MRSA Surgical History vasectomy Surgical History surgery for Right leg infection removed Hospitalization History Hospitalization for surgery only
--- OUTSIDE RECORDS SUMMARY | 2018-04-20 11:35 | XMS REPORT ---
Author Author CRISTOBAL CLEMENTS Organization [facility] Address [address] [place] [address] Care Team Providers Care Loaf Counter Name Role Phone CRISTOBAL CLEMENTS Unavailable PROBLEMS Type Condition ICD9-CM Code JEU50-IO Code Onset Dates Condition Status SNOMED Code Problem Other chronic pain G89.29 Active 84646063 Problem Other chronic pain G89.29 Active 19043897 ALLERGIES Substance Reaction Event Type Date Status Latex Unknown Non Drug Allergy Feb, Active ENCOUNTERS Encounter Location Date Diagnosis [facility] [id number] [place] [address] [id number] Jun, Dental caries K02.9 [facility] [address] [id number] Jun, Dental examination Z01.20 [facility] [address] 08871- 3935 Feb, Other chronic pain G89.29 [facility] [id number] [place] [address] 05944- 1582 Feb, Other chronic pain G89.29 [facility] [id number] [place] [address] 14582- 8537 Feb, [facility] [id number] [place] [address] 04609- 5223 Jan, Other chronic pain G89.29 [facility] [address] 75935- 7002 Dec, Other chronic pain G89.29 [facility] [address] 92730- 8642 Dec, [facility] [address] 60861- 8439 Nov, Other chronic pain G89.29 [facility] [id number] [place] [address] 85723- 1112 Nov, Other chronic pain G89.29 [facility] [id number] [place] [address] 38554- 9053 October, Other chronic pain G89.29 [facility] [id number] [place] [address] 40233- 8044 Sep, Other chronic pain G89.29 [facility] [id number] [place] [address] 53372- 1074 Sep, Left elbow pain M25.522 and Other chronic pain G89.29 [facility] [id number] [place] [address] 19469- 5155 Aug, Other chronic pain G89.29 [facility] [id number] [place] [address] 41501- 6881 Aug, [facility] [id number] [place] [address] 27490- 7849 Aug, [facility] [id number] [place] [address] 79270- 9951 Aug, Abscess of elbow L02.419 [facility] [id number] [place] [address] 63171- 6338 Jul, Other chronic pain G89.29 [facility] [id number] [place] [address] 85233- 1155 Jul, Other chronic pain G89.29 and Bursitis of left elbow M70.32 [facility] [id number] [place] [address] 72571- 9880 Jun, Other bursal cyst, left elbow M71.322 ; Low back pain M54.5 and Other chronic pain G89.29 [facility] [id number] [place] [address] 93629- 2151 May, Other chronic pain G89.29 and Pain in left elbow M25.522 [facility] [id number] [place] [address] [id number] May, Dental caries K02.9 [facility] [id number] [place] [address] 19360- 7296 May, Cellulitis of left upper extremity L03.114 [facility] [address] [id number] Mar, Encounter for dental examination Z01.20 [facility] [id number] [place] [address] 76632 -0406 Jan, Poison delilah L23.7 [facility] [id number] [place] [address] [id number] Sep, Dental examination Z01.20 [facility] [id number] [place] [address] 01356 -5066 Sep, Poison delilah dermatitis L23.7 [facility] [id number] [place] [address] 78400- 8531 Jul, Headache R51 ; Alcohol abuse F10.10 ; Marijuana abuse F12.10 and 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 [facility] [id number] [place] [address] 94401- 8010 Sep, [facility] [id number] [place] [address] 48259- 4731 Sep, [facility] [id number] [place] [address] 10839- 2874 Aug, [facility] [address] 21993- 3689 Aug, [facility] [id number] [place] [address] 55483- 2296 Aug, [facility] [address] 61166- 8737 Aug, [facility] [place] [facility] [address] [id number] [place] [address]- 3283 Jul, [facility] [place] [facility] [address] [id number] [place] [address]- 2936 Jul, 2014 [facility] [place] [facility] [address] [id number] [place] [address]- 3735 Jul, 2014 [facility] [place] [facility] [address] [id number] [place] [address]- 1735 Jul, 2014 [facility] [place] [facility] [address] [id number] [place] [address]- 5124 Jul, [facility] [place] [facility] [address] [id number] [place] [address]- 4704 Jul, 2014 [facility] [place] [facility] [address] [facility] [id number] [place] [address]- 4312 Aug, [facility] [place] [facility] [address] [id number] [place] [address]- 0933 Aug, [facility] [place] [facility] [address] [id number] [place] [address]- 4311 Jul, [facility] [place] [facility] [address] [id number] [place] [address]- 0553 Jul, [facility] [place] [facility] [address] [id number] [place] [address]- 3051 Jun, [facility] [place] [facility] [address] [id number] [place] [address]- 5247 Jun, [facility] [place] [facility] [address] [id number] [place] [address]- 1229 Jun, [facility] [place] [facility] [address] [id number] [place] [address]- 2707 Jun, [facility] [place] [facility] [address] [facility] [id number] [place] [address]- 3382 14 Jun, 2013 [facility] [place] [facility] [address] [id number] [place] [address]- 9694 14 Jun, 2013 [facility] [place] [facility] [address] [id number] [place] [address]- 1597 08 Jun, 2012 [facility] [place] [facility] [address] [id number] [place] [address]- 2546 07 Jun, 2012 [facility] [place] [facility] [address] [id number] [place] [address]- 8099 07 May, 2012 [facility] [place] [facility] [address] [id number] [place] [address]- 5854 May, [facility] [place] [facility] [address] [id number] [place] [address]- 1474 Apr, [facility] [place] [facility] [address] [id number] [place] [address]- 1536 Apr, [facility] [place] [facility] [address] [id number] [place] [address]- 2435 Mar, [facility] [place] [facility] [address] [id number] [place] [address]- 6052 Mar, [facility] [place] [facility] [address] [id number] [place] [address]- 7380 Mar, [facility] [place] [facility] [address] [facility] [id number] [place] [address]- 2919 Mar, [facility] [place] [facility] [address] [id number] [place] [address]- 9985 Feb, [facility] [place] [facility] [address] [id number] [place] [address]- 2546 Dec, [facility] [place] [facility] [address] [id number] [place] [address]- 2546 Dec, [facility] [place] [facility] [address] [id number] [place] [address]- 2546 Nov, [facility] [place] [facility] [address] [id number] [place] [address]- 9641 Nov, [facility] [address] [place] [address]- 1590 Nov, [facility] [address], [place] [address]- 4776 October, [facility] [address] [address]- 8020 October, [facility] [id number] [place] [address] 90709- 8796 Aug, [facility] [id number] [place] [address] 01429- 9042 Aug, [facility] [id number] [place] [address] 31933- 2846 Jul, [facility] [id number] [place] [address] 56152- 1718 Jul, [facility] [id number] [place] [address] 40211- 8696 Apr, [facility] [address] [address]- 1995 Apr, [facility] [address], [place] [address]- 9170 Mar, [facility] [address], [place] [address]- 0085 Dec, IMMUNIZATIONS No Known Immunizations SOCIAL HISTORY Never Assessed REASON FOR VISIT uds CBrumbackRN PLAN OF CARE VITAL SIGNS MEDICATIONS Medication Instructions Dosage Frequency Start Date End Date Duration Status [place] 10-325 MG Orally every 6 hrs 1 tablet as needed 6h Jan, 28 days Active RESULTS Name Result Date Reference Range URINE DRUG SCREEN (IN HOUSE) 2017-03-08 Lot # [id number] Exp date Control positive COCAINE negative AMPH negative MTD negative THC positive OPIATE positive BENZO negative PCP negative BAR negative OXY negative MAMP negative TCA negative BUP negative MDMA negative PROCEDURES Procedure Date Ordered Result Body Site DRUG TEST PRSMV DIR OPT OBS Mar 08, 2017 INSTRUCTIONS MEDICATIONS ADMINISTERED No Known Medications MEDICAL (GENERAL) HISTORY Type Description Date Medical History Hx MRSA Surgical History vasectomy Surgical History surgery for Right leg infection removed Hospitalization History Hospitalization for surgery only
--- OUTSIDE RECORDS SUMMARY | 2018-04-20 11:35 | XMS REPORT ---
Author Author CRISTOBAL CLEMENTS Organization [facility] Address [address] [place] [address] Care Team Providers Care Process Laboratory Specialist Name Role Phone CRISTOBAL CLEMENTS Unavailable PROBLEMS Type Condition ICD9-CM Code MXT14-WJ Code Onset Dates Condition Status SNOMED Code Problem Other chronic pain G89.29 Active 46757197 Problem Other chronic pain G89.29 Active 19685562 Problem Encounter for dental examination Z01.20 Active 484219500 ALLERGIES Substance Reaction Event Type Date Status Latex Unknown Non Drug Allergy May, Active SOCIAL HISTORY No smoking Hx information available PLAN OF CARE VITAL SIGNS Height 70 in 2016-06-18 Weight 194.9 lbs 2016-06-18 Temperature 98.7 degrees Fahrenheit 2016-06-18 Heart Rate 88 bpm 2016-06-18 Respiratory Rate 18 2016-06-18 BMI 27.96 kg/m2 2016-06-18 Blood pressure systolic 162 mmHg 2016-06-18 Blood pressure diastolic 108 mmHg 2016-06-18 MEDICATIONS Medication Instructions Dosage Frequency Start Date End Date Duration Status [place] 10-325 MG Orally every 6 hrs 1 tablet as needed 6h May, Active RESULTS No Results PROCEDURES Procedure Date Ordered Related Diagnosis Body Site JOINT INJECTION-INTERMEDIATE JOINT 2016-06-18 N/A Office Visit, Est Pt., Level 3 Jun 18, 2016 DRAIN/INJECT, JOINT/BURSA Jun 18, 2016 IMMUNIZATIONS No Known Immunizations
--- OUTSIDE RECORDS SUMMARY | 2018-04-20 11:35 | XMS REPORT ---
Author Author CRISTOBAL CLEMENTS Organization [facility] Address [address] [place] [address] Care Team Providers Care Hand Stamper Name Role Phone CRISTOBAL CLEMENTS Unavailable PROBLEMS Type Condition ICD9-CM Code XFP22-OI Code Onset Dates Condition Status SNOMED Code Problem Other chronic pain G89.29 Active 69021475 Problem Other chronic pain G89.29 Active 36608227 ALLERGIES No Information ENCOUNTERS Encounter Location Date Diagnosis [facility] [id number] [place] [address] [id number] Jun, Dental caries K02.9 [facility] [id number] [place] [address] [id number] Jun, Dental examination Z01.20 [facility] [id number] [place] [address] 18516- 8663 Feb, Other chronic pain G89.29 [facility] [address] 48491- 2466 Feb, Other chronic pain G89.29 [facility] [id number] [place] [address] 51505- 3496 Feb, [facility] [id number] [place] [address] 86543- 0775 Jan, Other chronic pain G89.29 [facility] [id number] [place] [address] 15903- 1533 Dec, Other chronic pain G89.29 [facility] [address] 42778- 8699 Dec, [facility] [id number] [place] [address] 47628- 5622 Nov, Other chronic pain G89.29 [facility] [address] [address] 0311 Nov, Other chronic pain G89.29 [facility] [id number] [place] [address] 41466- 8886 October, Other chronic pain G89.29 [facility] [id number] [place] [address] 15574- 2216 Sep, Other chronic pain G89.29 [facility] [id number] [place] [address] 50612 2546 Sep, Left elbow pain M25.522 and Other chronic pain G89.29 [facility] [id number] [place] [address] 98384- 1946 Aug, Other chronic pain G89.29 [facility] [id number] [place] [address] 31693- 5426 Aug, [facility] [id number] [place] [address] 08534- 7759 Aug, [facility] [id number] [place] [address] 88116- 7928 Aug, Abscess of elbow L02.419 [facility] [id number] [place] [address] 81031- 4147 Jul, Other chronic pain G89.29 [facility] [id number] [place] [address] 49233- 3694 Jul, Other chronic pain G89.29 and Bursitis of left elbow M70.32 [facility] [id number] [place] [address] 62232- 4286 Jun, Other bursal cyst, left elbow M71.322 ; Low back pain M54.5 and Other chronic pain G89.29 [facility] [id number] [place] [address] 51486 2546 May, Other chronic pain G89.29 and Pain in left elbow M25.522 [facility] [id number] [place] [address] [id number] May, Dental caries K02.9 [facility] [address] 757397- 5926 May, Cellulitis of left upper extremity L03.114 [facility] [address] [id number] Mar, Encounter for dental examination Z01.20 [facility] [address] 923028 -3894 Jan, Poison delilah L23.7 [facility] [address] [id number] Sep, Dental examination Z01.20 [facility] [id number] [place] [address] 466455 -7146 Sep, Poison delilah dermatitis L23.7 [facility] [id number] [place] [address] 67337- 3619 Jul, Headache R51 ; Alcohol abuse F10.10 ; Marijuana abuse F12.10 and 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 [facility] [id number] [place] [address] 48998- 6003 Sep, [facility] [id number] [place] [address] 66196- 0204 Sep, [facility] [id number] [place] [address] 85964- 3427 Aug, [facility] [address] 20795- 5385 Aug, [facility] [id number] [place] [address] 12879- 2541 Aug, [facility] [id number] [place] [address] 82830- 9892 Aug, [facility] [id number] [address]- 7711 Jul, 2014 [facility] [place] [facility] [address] [id number] [place] [address]- 7980 Jul, 2014 [facility] [place] [facility] [address] [id number] [place] [address]- 6186 16 Jul, 2014 [facility] [place] [facility] [address] [id number] [place] [address]- 5566 Jul, 2014 [facility] [place] [facility] [address] [id number] [place] [address]- 2863 Jul, 2014 [facility] [place] [facility] [address] [id number] [place] [address]- 7592 Jul, 2014 [facility] [place] [facility] [address] [id number] [place] [address]- 0069 Aug, [facility] [place] [facility] [address] [id number] [place] [address]- 5293 Aug, [facility] [place] [facility] [address] [id number] [place] [address]- 3878 Jul, [facility] [place] [facility] [address] [id number] [place] [address]- 7239 Jul, [facility] [place] [facility] [address] [id number] [place] [address]- 3967 Jun, [facility] [place] [facility] [address] [id number] [place] [address]- 7236 Jun, [facility] [place] [facility] [address] [id number] [place] [address]- 6741 Jun, [facility] [place] [facility] [address] [id number] [place] [address]- 1264 Jun, [facility] [place] [facility] [address] [id number] [place] [address]- 3116 Jun, [facility] [place] [facility] [address] [id number] [address]- 3489 Jun, [facility] [place] [facility] [address] [id number] [place] [address]- 8690 Jun, [facility] [place] [facility] [address] [id number] [place] [address]- 9723 Jun, [facility] [place] [facility] [address] [id number] [place] [address]- 1354 May, [facility] [place] [facility] [address] [id number] [place] [address]- 9764 May, [facility] [place] [facility] [address] [id number] [place] 6767 Apr, [facility] [place] [facility] [address] [id number] [place] [address]- 0531 Apr, [facility] [place] [facility] [address] [id number] [place] [address]- 2282 Mar, [facility] [place] [facility] [address] [id number] [place] [address]- 4386 Mar, [facility] [place] [facility] [address] [id number] [place] [address]- 2876 Mar, [facility] [place] [facility] [address] [id number] [place] [address]- 6559 Mar, [facility] [place] [facility] [address] [id number] [address]- 4653 Feb, [facility] [place] [facility] [address] [id number][place] [address]- 4090 Dec, [facility] [place] [facility] [address] [id number] [place] [address]- 8403 Dec, [facility] [place] [facility] [address] [id number] [place] [address]- 2561 Nov, [facility] [place] [facility] [address] [id number] [place] [address]- 6984 Nov, [facility] [place] [facility] [address] [facility] [id number], [place] [address]- 2546 Nov, [facility] [address] [facility] [id number], [place] [address]- 6966 October, [facility] [address] [facility] [id number][place] [address]- 2546 October, [facility] [address] [facility] [id number][place] [address]- 5516 Aug, [facility] [address] [facility] [id number][place] [address]- 2546 Aug, [facility] [address] [facility] [id number][place] [address]- 6456 Jul, [facility] [address] [facility] [id number][place] [address]- 5736 Jul, [facility] [address] [address]- 1492 Apr, [facility] [address] [facility] [id number][place] [address]- 9740 Apr, [facility] [address] [id number] [address]- 4197 Mar, [facility] [address] [facility] [id number][place] [address]- 6562 Dec, IMMUNIZATIONS No Known Immunizations SOCIAL HISTORY [...]
--- OUTSIDE RECORDS SUMMARY | 2018-04-20 11:35 | XMS REPORT ---
Author Author FANNY PEDROZA [facility] Address Unknown Care Team Providers Care Sharepoint Web Developer Name Role Phone FANNY PEDROZA Unavailable PROBLEMS Type Condition ICD9-CM Code UJJ16-IA Code Onset Dates Condition Status SNOMED Code Problem Other chronic pain G89.29 Active 54135118 Problem Other chronic pain G89.29 Active 94531955 ALLERGIES Substance Reaction Event Type Date Status Latex Unknown Non Drug Allergy Jun, Active ENCOUNTERS Encounter Location Date Diagnosis [facility] [id number] [place] [address] [id number] Jun, Dental caries K02.9 [facility] [address] [id number] Jun, Dental examination Z01.20 [facility] [id number] [place] [address] 42587- 9252 Feb, Other chronic pain G89.29 [facility] [id number] [place] [address] 71490- 1494 Feb, Other chronic pain G89.29 [facility] [id number] [place] [address] 60950- 1134 Feb, [facility] [id number] [place] [address] 74915- 3312 Jan, Other chronic pain G89.29 [facility] [id number] [place] [address] 41945- 4076 Dec, Other chronic pain G89.29 [facility] [id number] [place] [address] 63143- 8221 Dec, [facility] [id number] [place] [address] 95636- 9748 Nov, Other chronic pain G89.29 [facility] [id number] [place] [address] 77013- 5016 Nov, Other chronic pain G89.29 [facility] [id number] [place] [address] 64322- 7960 October, Other chronic pain G89.29 [facility] [id number] [place] [address] 66285- 8643 Sep, Other chronic pain G89.29 [facility] [id number] [place] [address] 95915- 0482 Sep, Left elbow pain M25.522 and Other chronic pain G89.29 [facility] [id number] [place] [address] 92160- 8856 Aug, Other chronic pain G89.29 [facility] [id number] [place] [address] 70118- 2446 Aug, [facility] [id number] [place] [address] 67738- 8437 Aug, [facility] [id number] [place] [address] 31874- 5359 Aug, Abscess of elbow L02.419 [facility] [id number] [place] [address] 36829- 9145 Jul, Other chronic pain G89.29 [facility] [id number] [place] [address] 31487- 5041 Jul, Other chronic pain G89.29 and Bursitis of left elbow M70.32 [facility] [address] 48440- 3781 Jun, Other bursal cyst, left elbow M71.322 ; Low back pain M54.5 and Other chronic pain G89.29 [facility] [id number] [place] [address] 50105- 5392 30 Dec, 2016 Other chronic pain G89.29 and Pain in left elbow M25.522 [facility] [address] [place] [address] [id number] May, Dental caries K02.9 [facility] [id number] [place] [address] 229025- 5646 May, Cellulitis of left upper extremity L03.114 [facility] [id number] [place] [address] [id number] Mar, Encounter for dental examination Z01.20 [facility] [address] 634192 -2227 Jan, Poison delilah L23.7 [facility] [address] [id number] Sep, Dental examination Z01.20 [facility] [id number] [place] [address] 47800 -2866 Sep, Poison delilah dermatitis L23.7 [facility] [id number] [place] [address] 92008- 1771 Jul, Headache R51 ; Alcohol abuse F10.10 ; Marijuana abuse F12.10 and 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 [facility] [id number] [place] [address] 70314- 4105 Sep, [facility] [id number] [place] [address] 07778- 0477 Sep, [facility] [id number] [place] [address] 65538- 4357 Aug, [facility] [address] 74417- 1549 Aug, [facility] [id number] [place] [address] 19469- 7901 Aug, [facility] [id number] [place] [address] 64472- 0511 Aug, [facility] [place] [facility] [address] [id number] [place] [address]- 6110 Jul, 2014 [facility] [place] [facility] [address] [id number] [place] [address]- 3882 Jul, 2014 [facility] [place] [facility] [address] [id number] [place] [address]- 7530 16 Jul, 2014 [facility] [place] [facility] [address] [id number] [place] [address]- 1591 Jul, 2014 [facility] [place] [facility] [address] [id number] [place] [address]- 9847 Jul, 2014 [facility] [place] [facility] [address] [id number] [place] [address]- 9643 Jul, 2014 [facility] [place] [facility] [address] [id number] [place] [address]- 9845 Aug, [facility] [place] [facility] [address] [id number] [place] [address]- 8433 Aug, [facility] [place] [facility] [address] [id number] [place] [address]- 7282 Jul, [facility] [place] [facility] [address] [id number] [place] [address]- 5268 Jul, [facility] [place] [facility] [address] [id number] [place] [address]- 2106 Jun, [facility] [place] [facility] [address] [id number] [place] [address]- 0859 Jun, [facility] [place] [facility] [address] [id number] [place] [address]- 1718 Jun, [facility] [place] [facility] [address] [id number] [place] [address]- 1958 Jun, [facility] [place] [facility] [address] [id number] [place] [address]- 3962 14 Jun, 2013 [facility] [place] [facility] [address] [id number] [place] [address]- 3382 14 Jun, 2013 [facility] [place] [facility] [address] [id number] [place] [address]- 3054 08 Jun, 2012 [facility] [place] [facility] [address] [id number] [place] [address]- 7864 Jun, [facility] [place] [facility] [address] [id number] [place] [address]- 5579 07 May, 2012 [facility] [place] [facility] [address] [id number] [place] [address]- 1666 May, [facility] [place] [facility] [address] [id number] [place] [address]- 0873 Apr, [facility] [place] [facility] [address] [id number] [place] [address]- 4251 Apr, [facility] [place] [facility] [address] [id number] [place] [address]- 8044 Mar, [facility] [place] [facility] [address] [id number] [place] [address]- 0971 Mar, [facility] [place] [facility] [address] [id number] [place] [address]- 4186 Mar, [facility] [place] [facility] [address] [facility] [id number] [place] [address]- 6634 Mar, [facility] [place] [facility] [address] [id number] [place] [address]- 7848 Feb, [facility] [place] [facility] [address] [id number] [place] [address] 2549 Dec, [facility] [place] [facility] [address] [id number] [place] [address]- 5403 Dec, [facility] [place] [facility] [address] [facility] [id number] [place] [address]- 5582 Nov, [facility] [place] [facility] [address] [facility] [id number] [place] [address]- 5366 Nov, [facility] [place] [facility] [address] [facility] [id number], [place] [address]- 2546 Nov, [facility] [address] [facility] [id number], [place] [address]- 2336 October, [facility] [address] [facility] [id number], [place] [address]- 2546 October, [facility] [address] [facility] [id number], [place] [address]- 2546 Aug, [facility] [address] [facility] [id number], [place] [address]- 3776 Aug, [facility] [address] [facility] [id number], [place] [address]- 7586 Jul, [facility] [address] [facility] [id number], [place] [address]- 2546 Jul, [facility] [address] [id number], [place] [address]- 6980 Apr, [facility] [address] [facility] [id number], [place] [address]- 5899 Apr, [facility] [address] [id number], [place] [address]- 2486 Mar, [facility] [address] [id number], [place] [address]- 8482 Dec, IMMUNIZATIONS No Known Immunizations SOCIAL HISTORY Never Assessed REASON FOR VISIT 1 HR TE PLAN OF CARE Activity Details Follow Up prn Reason:hygiene VITAL SIGNS Blood pressure systolic 142 mmHg 2017-07-05 Blood pressure diastolic 89 mmHg 2017-07-05 MEDICATIONS Medication Instructions Dosage Frequency Start Date End Date Duration Status Amoxicillin 500 MG Orally every 8 hrs 1 capsule 8h Jun, Jun, 10 day(s) Active RESULTS No Results PROCEDURES Procedure Date Ordered Result Body Site SURG REMOVAL ERUPTED TOOTH Jul 05, 2017 INSTRUCTIONS MEDICATIONS ADMINISTERED No Known Medications MEDICAL (GENERAL) HISTORY Type Description Date Medical History Hx MRSA Surgical History vasectomy Surgical History surgery for Right leg infection removed Hospitalization History Hospitalization for surgery only
--- OUTSIDE RECORDS SUMMARY | 2018-04-20 11:35 | XMS REPORT ---
Author Author CRISTOBAL CLEMENTS Organization [facility] Address [address] [place] [address] Care Team Providers Care Architecture Manager Name Role Phone CRISTOBAL CLEMENTS Unavailable PROBLEMS Type Condition ICD9-CM Code DWF62-CF Code Onset Dates Condition Status SNOMED Code Problem Other chronic pain G89.29 Active 40949637 Problem Other chronic pain G89.29 Active 62917523 Problem Encounter for dental examination Z01.20 Active 901487704 ALLERGIES Substance Reaction Event Type Date Status Latex Unknown Non Drug Allergy Jul, Active SOCIAL HISTORY Never Assessed PLAN OF CARE Activity Details Follow Up 4 Weeks Reason: VITAL SIGNS Height 70 in 2016-08-16 Weight 195 lbs 2016-08-16 Temperature 98.6 degrees Fahrenheit 2016-08-16 Heart Rate 78 bpm 2016-08-16 Respiratory Rate 18 2016-08-16 BMI 27.98 kg/m2 2016-08-16 Blood pressure systolic 144 mmHg 2016-08-16 Blood pressure diastolic 86 mmHg 2016-08-16 MEDICATIONS Medication Instructions Dosage Frequency Start Date End Date Duration Status [place] 10-325 MG Orally every 6 hrs 1 tablet as needed 6h Jun, Active RESULTS No Results PROCEDURES No Known procedures IMMUNIZATIONS No Known Immunizations MEDICAL (GENERAL) HISTORY Type Description Date Medical History Hx MRSA Surgical History vasectomy Surgical History surgery for Right leg infection removed Hospitalization History Hospitalization for surgery only
--- OUTSIDE RECORDS SUMMARY | 2018-04-20 11:35 | XMS REPORT ---
Author Author CRISTOBAL CLEMENTS Organization [facility] Address [address] [place] [address] Care Team Providers Care Religious Assistant Name Role Phone CRISTOBAL CLEMENTS Unavailable PROBLEMS Type Condition ICD9-CM Code RWV17-AH Code Onset Dates Condition Status SNOMED Code Problem Other chronic pain G89.29 Active 24436601 Problem Other chronic pain G89.29 Active 66412676 ALLERGIES No Information ENCOUNTERS Encounter Location Date Diagnosis [facility] [id number] [place] [address] [id number] Jun, Dental caries K02.9 [facility] [id number] [place] [address] [id number] Jun, Dental examination Z01.20 [facility] [id number] [place] [address] 14096- 4418 Feb, Other chronic pain G89.29 [facility] [id number] [place] [address] 36579- 8128 Feb, Other chronic pain G89.29 [facility] [id number] [place] [address] 21906- 1066 Feb, [facility] [id number] [place] [address] 97997- 7679 Jan, Other chronic pain G89.29 [facility] [id number] [place] [address] 21490- 4038 Dec, Other chronic pain G89.29 [facility] [address] [address]- 7431 Dec, [facility] [id number] [place] [address] 46961- 4077 Nov, Other chronic pain G89.29 [facility] [address] [address] 1665 Nov, Other chronic pain G89.29 [facility] [id number] [place] [address] 38653- 5506 October, Other chronic pain G89.29 [facility] [id number] [place] [address] 75320- 8376 Sep, Other chronic pain G89.29 [facility] [id number] [place] [address] 96419 2546 Sep, Left elbow pain M25.522 and Other chronic pain G89.29 [facility] [id number] [place] [address] 82467- 0546 Aug, Other chronic pain G89.29 [facility] [id number] [place] [address] 78600- 7046 Aug, [facility] [id number] [place] [address] 93727- 1839 Aug, [facility] [id number] [place] [address] 04172- 7406 Aug, Abscess of elbow L02.419 [facility] [id number] [place] [address] 18844- 1596 Jul, Other chronic pain G89.29 [facility] [id number] [place] [address] 66700- 9365 Jul, Other chronic pain G89.29 and Bursitis of left elbow M70.32 [facility] [id number] [place] [address] 68891- 3767 Jun, Other bursal cyst, left elbow M71.322 ; Low back pain M54.5 and Other chronic pain G89.29 [facility] [id number] [place] [address] 06514 2546 May, Other chronic pain G89.29 and Pain in left elbow M25.522 [facility] [id number] [place] [address] [id number] May, Dental caries K02.9 [facility] [address] 429800- 5846 May, Cellulitis of left upper extremity L03.114 [facility] [address] [id number] Mar, Encounter for dental examination Z01.20 [facility] [address] [phone] -1186 Jan, Poison delilah L23.7 [facility] [address] [id number] Sep, Dental examination Z01.20 [facility] [id number] [place] [address] [id number] -6556 Sep, Poison delilah dermatitis L23.7 [facility] [id number] [place] [address] 81739- 1175 Jul, Headache R51 ; Alcohol abuse F10.10 ; Marijuana abuse F12.10 and 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 [facility] [id number] [place] [address] 72728- 7933 Sep, [facility] [id number] [place] [address] 85012- 9777 Sep, [facility] [id number] [place] [address] 75755- 1774 Aug, [facility] [address] 36220- 3996 Aug, [facility] [id number] [place] [address] 35935- 3398 Aug, [facility] [id number] [place] [address] 04436- 9421 Aug, [facility] [id number] [place] [address]12 Jul, 2014 [facility] [place] [facility] [address] [id number] [place] [address]- 0512 Jul, 2014 [facility] [place] [facility] [address] [id number] [place] [address]- 0856 16 Jul, 2014 [facility] [place] [facility] [address] [id number] [place] [address]- 8660 Jul, 2014 [facility] [place] [facility] [address] [id number] [place] [address]- 8317 Jul, 2014 [facility] [place] [facility] [address] [id number] [place] [address]- 2651 Jul, 2014 [facility] [place] [facility] [address] [id number] [place] [address]- 5671 Aug, [facility] [place] [facility] [address] [id number] [place] [address]- 0035 Aug, [facility] [place] [facility] [address] [id number] [place] [address]- 4048 Jul, [facility] [place] [facility] [address] [id number] [place] [address]- 2231 Jul, [facility] [place] [facility] [address] [id number] [place] [address]- 6810 Jun, [facility] [place] [facility] [address] [id number] [place] [address]- 0569 Jun, [facility] [place] [facility] [address] [id number] [place] [address]- 0393 Jun, [facility] [place] [facility] [address] [id number] [place] [address]- 6084 Jun, [facility] [place] [facility] [address] [id number] [place] [address]- 9572 Jun, [facility] [place] [facility] [address] [id number], [place] [address]- 7611 Jun, [facility] [place] [facility] [address] [id number] [place] [address]- 8112 Jun, [facility] [place] [facility] [address] [id number] [place] [address]- 8108 Jun, [facility] [place] [facility] [address] [id number] [place] [address]- 3915 May, [facility] [place] [facility] [address] [id number] [place] [address]- 0745 May, [facility] [place] [facility] [address] [id number] [place] [address] Apr, [facility] [place] [facility] [address] [id number] [place] [address]- 1105 Apr, [facility] [place] [facility] [address] [id number] [place] [address]- 0806 Mar, [facility] [place] [facility] [address] [id number] [place] [address]- 5894 Mar, [facility] [place] [facility] [address] [id number] [place] [address]- 3955 Mar, [facility] [place] [facility] [address] [id number] [place] [address]- 8729 Mar, [facility] [place] [facility] [address] [id number], [place] [address]- 6604 Feb, [facility] [place] [facility] [address] [id number], [place] [address]- 6030 Dec, [facility] [place] [facility] [address] [id number] [place] [address]- 5246 Dec, [facility] [place] [facility] [address] [id number] [place] [address]- 5176 Nov, [facility] [place] [facility] [address] [id number] [place] [address]- 5388 Nov, [facility] [place] [facility] [address] [facility] [id number], [place] [address]- 2546 Nov, [facility] [address] [facility] [id number], [place] [address]- 6026 October, [facility] [address] [facility] [id number], [place] [address]- 2546 October, [facility] [address] [facility] [id number], [place] [address]- 2546 Aug, [facility] [address] [facility] [id number], [place] [address]- 2546 Aug, [facility] [address] [facility] [id number], [place] [address]- 0206 Jul, [facility] [address] [facility] [id number], [place] [address]- 2546 Jul, [facility] [address] [place] [address]- 3956 Apr, [facility] [address] [facility] [id number], [place] [address]- 8451 Apr, [facility] [id number], [place] [address]- 5416 Mar, [facility] [address] [id number], [place] [address]- 7969 Dec, IMMUNIZATIONS No Known Immunizations SOCIAL HISTORY Never Assessed REASON FOR VISIT Controlled Med Refill 12/14/16 PLAN OF CARE VITAL SIGNS MEDICATIONS Medication Instructions Dosage Frequency Start Date End Date Duration Status [place] 10-325 MG Orally every 6 hrs 1 tablet as needed 6h Nov, 28 days Active RESULTS No Results PROCEDURES No Known procedures INSTRUCTIONS MEDICATIONS ADMINISTERED No Known Medications MEDICAL (GENERAL) HISTORY Type Description Date Medical History Hx MRSA Surgical History vasectomy Surgical History surgery for Right leg infection removed Hospitalization History Hospitalization for surgery only
--- OUTSIDE RECORDS SUMMARY | 2018-04-20 11:35 | XMS REPORT ---
Author Author CRISTOBAL CLEMENTS [facility] Address [address] [place] [address] Care Team Providers Care Distribution Field Engineer Name Role Phone CRISTOBAL CLEMENTS Unavailable PROBLEMS Type Condition ICD9-CM Code GWC11-BR Code Onset Dates Condition Status SNOMED Code Problem Other chronic pain G89.29 Active 69900710 Problem Other chronic pain G89.29 Active 06969070 Problem Encounter for dental examination Z01.20 Active 691114256 ALLERGIES No Information SOCIAL HISTORY Never Assessed PLAN OF CARE VITAL SIGNS MEDICATIONS Unknown Medications RESULTS No Results PROCEDURES No Known procedures IMMUNIZATIONS No Known Immunizations MEDICAL (GENERAL) HISTORY Type Description Date Medical History Hx MRSA Surgical History vasectomy Surgical History surgery for Right leg infection removed Hospitalization History Hospitalization for surgery only
--- OUTSIDE RECORDS SUMMARY | 2018-04-20 11:35 | XMS REPORT ---
Author Author CRISTOBAL CLEMENTS Organization [facility] Address [address] [place] [address] Care Team Providers Care Package Checker Name Role Phone CRISTOBAL CLEMENTS Unavailable PROBLEMS Type Condition ICD9-CM Code CYF60-DA Code Onset Dates Condition Status SNOMED Code Problem Other chronic pain G89.29 Active 21358905 Problem Other chronic pain G89.29 Active 52426156 Problem Encounter for dental examination Z01.20 Active 268505393 ALLERGIES Substance Reaction Event Type Date Status Latex Unknown Non Drug Allergy Aug, Active SOCIAL HISTORY Never Assessed PLAN OF CARE VITAL SIGNS Height 70 in 2016-08-20 Weight 197.1 lbs 2016-08-20 Temperature 98.3 degrees Fahrenheit 2016-08-20 Heart Rate 82 bpm 2016-08-20 Respiratory Rate 20 2016-08-20 BMI 28.28 kg/m2 2016-08-20 Blood pressure systolic 122 mmHg 2016-08-20 Blood pressure diastolic 82 mmHg 2016-08-20 MEDICATIONS Medication Instructions Dosage Frequency Start Date End Date Duration Status Nunnelly 10-325 MG Orally every 6 hrs 1 tablet as needed 6h Aug, Active Bactrim DS 800-160 MG Orally Twice a day 1 tablet 12h Aug,Aug 10 day(s) Active Silvadene 1 % Externally Once a day 1 application to affected area 24h Aug, Active RESULTS Name Result Date Reference Range CULTURE, AEROBIC 2016-08-20 Aerobic Bacterial Culture Final report Result 1 Staphylococcus aureus Antimicrobial Susceptibility PROCEDURES Procedure Date Ordered Result Body Site CULTURE, BACTERIA, OTHER August 20, 2016 IMMUNIZATIONS No Known Immunizations MEDICAL (GENERAL) HISTORY Type Description Date Medical History Hx MRSA Surgical History vasectomy Surgical History surgery for Right leg infection removed Hospitalization History Hospitalization for surgery only
--- OUTSIDE RECORDS SUMMARY | 2018-04-20 11:36 | XMS REPORT ---
Author Author FANNY PEDROZA [facility] Address Unknown Care Team Providers Care Electrician Deck Name Role Phone FANNY PEDROZA Unavailable PROBLEMS Type Condition ICD9-CM Code HCD50-WU Code Onset Dates Condition Status SNOMED Code Problem Other chronic pain G89.29 Active 44628725 Problem Other chronic pain G89.29 Active 99892322 Problem Encounter for dental examination Z01.20 Active 496943306 ALLERGIES Substance Reaction Event Type Date Status Latex Unknown Non Drug Allergy May, Active SOCIAL HISTORY No smoking Hx information available PLAN OF CARE Activity Details Follow Up prn Reason:fillings VITAL SIGNS Blood pressure systolic 127 mmHg 2016-05-25 Blood pressure diastolic 90 mmHg 2016-05-25 MEDICATIONS Medication Instructions Dosage Frequency Start Date End Date Duration Status Amoxicillin 500 MG Orally Three times a day 1 capsule 8h 7 days Active Bactrim DS 800-160 MG Orally Twice a day 1 tablet 12h May,May 10 day(s) Active [place] 10-325 MG Orally every 6 hrs 1 tablet as needed 6h May, Active RESULTS No Results PROCEDURES Procedure Date Ordered Related Diagnosis Body Site INTRAORL-PERIAPICAL 1 FILM [id number] May 25, 2016 EXTRAC ERUPTED TOOTH/EXPOSED ROOT May 25, 2016 IMMUNIZATIONS No Known Immunizations
--- OUTSIDE RECORDS SUMMARY | 2018-04-20 11:36 | XMS REPORT ---
Author Author CRISTOBAL CLEMENTS [facility] Address [address] [place] [address] Care Team Providers Care Call Center Consultant Name Role Phone CRISTOBAL CLEMENTS Unavailable PROBLEMS Type Condition ICD9-CM Code FYJ82-MH Code Onset Dates Condition Status SNOMED Code Problem Other chronic pain G89.29 Active 40439826 Problem Other chronic pain G89.29 Active 59253764 Problem Encounter for dental examination Z01.20 Active 267646353 ALLERGIES No Information SOCIAL HISTORY Never Assessed PLAN OF CARE VITAL SIGNS MEDICATIONS Medication Instructions Dosage Frequency Start Date End Date Duration Status [place] 10-325 MG Orally every 6 hrs 1 tablet as needed 6h October, 28 days Active RESULTS No Results PROCEDURES No Known procedures IMMUNIZATIONS No Known Immunizations MEDICAL (GENERAL) HISTORY Type Description Date Medical History Hx MRSA Surgical History vasectomy Surgical History surgery for Right leg infection removed Hospitalization History Hospitalization for surgery only
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
[2018-04-20] MEDS: HYDROcodone/APAP 5 MG/325 MG (LORTAB) TAB PO STA (12:27)
[2018-04-20] MEDS ORDERED: CEPH-507 PO (12:40)
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
--- NOTE | 2018-04-20 12:58 | Diagnostic Imaging Report ---
INDICATION: Left hand pain and swelling. COMPARISON: Left hand radiographs from 08/28/2011. TECHNIQUE: 3 views of the left hand. FINDINGS: No uniform joint space narrowing or marginal erosions. Mild degenerative changes at the index MCP characterized by small marginal osteophyte. No fracture or osseous destruction. Normal osseous mineralization. No radiopaque foreign body. IMPRESSION: 1. No acute osseous abnormality in the left hand. 2. No structural changes of inflammatory arthritis. Dictated by: Dictated on workstation # [id number]
[2018-04-20 13:15] VITALS: BP 149/122
== END 2018-04-20 13:15 | disposition home or self-care (01) ==
LOC: EDUNIT# 11:30 → ER 11:31
DX: L03.114 Cellulitis of left upper limb (principal); F12.10 Cannabis abuse, uncomplicated; F17.210 Nicotine dependence, cigarettes, uncomplicated; Z86.14 Personal history of Methicillin resistant Staphylococcus aureus infection; Z98.52 Vasectomy status
CPT/HCPCS: 73130

== ENCOUNTER → 2021-06-26 | Outpatient (CLI) | payer SELFPAY | LOC: CARD 13:30 | PROVIDERS: ATTEND Pediatrics | DX: I11.9 Hypertensive heart disease without heart failure (principal) | CPT/HCPCS: 93306 ==

== ENCOUNTER 2021-10-26 14:18 | Emergency (ER) | payer SELFPAY ==
[~2021-10-26] VITALS: Ht 178 cm; Wt 85.0 kg
[2021-10-26] MEDS ORDERED: ASPIRIN 81 MG CHEW (CHILDREN'S ASA) PO ONE (14:30)
[2021-10-26] MEDS ORDERED: LORazepam INJ 2 MG/ML (ATIVAN) VIAL IVP ONE (14:30)
--- NOTE | 2021-10-26 14:38 | ED Cardiac General ---
History of Present Illness General Chief Complaint: Chest Pain Stated Complaint: ABNORMAL EKG Source: patient Exam Limitations: no limitations History of Present Illness Date Seen by Provider: October 26, 2021 Time Seen by Provider: 14:20 Initial Comments Patient to the ER by private conveyance from [facility] with chief complaint that he started getting tingling in his face and pain into his right shoulder blade [employer] is getting off work around noon. He says typically he drinks about a pint of whiskey at night. No history of pancreatitis or heart disease. He quit smoking couple years ago. He last used methamphetamines 8 years ago. He is not having any pain in his chest or shortness of air. He is not having nausea or vomiting. He went to [facility] because he felt like his blood pressure was high and it was elevated. They did an EKG which accompanied him showing some ST depression in his inferior leads. Patient was encouraged to come by EMS but came by POV to the ER. He has not had any aspirin. He does not take medicines routinely. He supposed to be on a blood pressure medicine but does not know the name. He does not endorse hyperlipidemia or diabetes. He says he was going to the clinic to see if he can get some help quitting drinking. He does still use Cannabis. Echocardiogram by Dr. Catalan demonstrating EF of 55 to 65% with grade 1 diastolic dysfunction. Allergies and Home Medications Allergies Coded Allergies: No Known Drug Allergies (Unverified , 08/25/11) Patient Home Medication List Home Medication List Reviewed: Yes Cephalexin (Keflex) 500 Mg Capsule, 500 MG PO QID Prescribed by: STEWART MUNGUIA on 04/20/18 1240 Review of Systems Review of Systems Constitutional: No chills, No diaphoresis EENTM: No Blurred Vision, No Double Vision Respiratory: Denies Cough, Denies Shortness of Air Cardiovascular: Denies Chest Pain, Denies Lightheadedness Gastrointestinal: Denies Abdominal Pain, Denies Constipated, Denies Diarrhea, Denies Nausea Genitourinary: Denies Burning, Denies Discharge Musculoskeletal: see HPI, back pain; No joint pain Psychiatric/Neurological: Denies Anxiety, Denies Depressed All Other Systems Reviewed Negative Unless Noted: Yes Past Yjkytko-Mesagm-Cpvowz Hx Patient Social History Tobacco Use?: No Use of E-Cig and/or Vaping dev: No Substance use?: No Immunizations Up To Date Tetanus Booster (TDap): Less than 5yrs Seasonal Allergies Seasonal Allergies: No Past Medical History Surgeries: Yes (I/D LEFT HAND ABCESS, I/D RIGHT GROIN ABCESS) Vasectomy Respiratory: No Cardiac: No Neurological: No Reproductive Disorders: No Genitourinary: No Gastrointestinal: No Musculoskeletal: Yes (l elbow bursitis) Endocrine: No HEENT: No Cancer: No Psychosocial: No Integumentary: Yes (ABSCESS RIGHT THIGH) Blood Disorders: No Family Medical History No Pertinent Family Hx Physical Exam Vital Signs Vital Signs - First Documented 10/26/21 14:24 Temp 35.9 Pulse 97 Resp 20 B/P (MAP) 189/139 (156) Pulse Ox 98 O2 Delivery Room Air Capillary Refill : Height, Weight, BMI Height: 5'10.00" Weight: 185lbs. 0.0oz. [id number]; BMI Method:Stated General Appearance: WD/WN, Anxious HEENT: PERRL/EOMI, Moist Mucous Membranes Neck: Full Range of Motion, Normal Inspection Respiratory: Lungs Clear, Normal Breath Sounds, No Accessory Muscle Use, No Respiratory Distress Cardiovascular: Regular Rate, Rhythm, No Edema, Normal Peripheral Pulses Gastrointestinal: Normal Bowel Sounds, Non Tender, Soft Extremity: Non Tender, No Pedal Edema Neurologic/Psychiatric: Alert, Oriented x3 Skin: Normal Color, Warm/Dry Progress/Results/Core Measures Results/Orders Lab Results Laboratory Tests Test 10/26/21 14:30 10/26/21 15:26 Range/Units White Blood Count 9.0 4.3-11.0 10^3/uL Red Blood Count 4.44 4.30-5.52 10^6/uL Hemoglobin 15.3 13.3-17.7 g/dL Hematocrit 44 40-54 % Mean Corpuscular Volume 98 80-99 fL Mean Corpuscular Hemoglobin 35 H 25-34 pg Mean Corpuscular Hemoglobin Concent 35 32-36 g/dL Red Cell Distribution Width 12.9 10.0-14.5 % Platelet Count 256 130-400 10^3/uL Mean Platelet Volume 10.3 9.0-12.2 fL Immature Granulocyte % (Auto) 0 % Neutrophils (%) (Auto) 63 42-75 % Lymphocytes (%) (Auto) 26 12-44 % Monocytes (%) (Auto) 9 0-12 % Eosinophils (%) (Auto) 1 0-10 % Basophils (%) (Auto) 1 0-10 % Neutrophils # (Auto) 5.7 1.8-7.8 10^3/uL Lymphocytes # (Auto) 2.3 1.0-4.0 10^3/uL Monocytes # (Auto) 0.8 0.0-1.0 10^3/uL Eosinophils # (Auto) 0.1 0.0-0.3 10^3/uL Basophils # (Auto) 0.1 0.0-0.1 10^3/uL Immature Granulocyte # (Auto) 0.0 0.0-0.1 10^3/uL Prothrombin Time 12.7 12.2-14.7 SEC INR Comment 0.9 0.8-1.4 Activated Partial Thromboplast Time 31 24-35 SEC D-Dimer 0.57 H 0.00-0.49 UG/ML Sodium Level 140 135-145 MMOL/L Potassium Level 4.0 3.6-5.0 MMOL/L Chloride Level 105 98-107 MMOL/L Carbon Dioxide Level 24 21-32 MMOL/L Anion Gap 11 5-14 MMOL/L Blood Urea Nitrogen 21 H 7-18 MG/DL Creatinine 1.20 0.60-1.30 MG/DL Estimat Glomerular Filtration Rate 75 BUN/Creatinine Ratio 18 Glucose Level 131 H 70-105 MG/DL Calcium Level 9.9 8.5-10.1 MG/DL Corrected Calcium 8.5-10.1 MG/DL Magnesium Level 2.1 1.6-2.4 MG/DL Total Bilirubin 0.5 0.1-1.0 MG/DL Aspartate Amino Transf (AST/SGOT) 23 5-34 U/L Alanine Aminotransferase (ALT/SGPT) 15 0-55 U/L Alkaline Phosphatase 62 40-136 U/L Myoglobin 78.2 10.0-92.0 NG/ML Troponin I < 0.028 <0.028 NG/ML B-Type Natriuretic Peptide 20.2 <100.0 PG/ML Total Protein 7.8 6.4-8.2 GM/DL Albumin 4.7 H 3.2-4.5 GM/DL Lipase 55 8-78 U/L Blood Gas Puncture Site L RADIAL Blood Gas Patient Temperature 35.9 Arterial Blood pH 7.45 H 7.37-7.43 Arterial Blood Partial Pressure CO2 37 35-45 MMHG Arterial Blood Partial Pressure O2 73 L 79-93 MMHG Arterial Blood HCO3 26 23-27 MMOL/L Arterial Blood Total CO2 26.9 21.0-31.0 MMOL/L Arterial Blood Oxygen Saturation 98 94-100 % Arterial Blood Base Excess 1.9 -2.5-2.5 MMOL/L Doron Test YES-POS Blood Gas Ventilator Setting NO Blood Gas Inspired Oxygen ROOM AIR My Orders Orders - CODEYSOCRATES JARAMILLO J Ekg Tracing (10/26/21 14:20) Cbc With Automated Diff (10/26/21 14:30) Magnesium (10/26/21 14:30) Chest 1 View, Ap/Pa Only (10/26/21 14:30) Comprehensive Metabolic Panel (10/26/21 14:30) Myoglobin Serum (10/26/21 14:30) Protime With Inr (10/26/21 14:30) Partial Thromboplastin Time (10/26/21 14:30) O2 (10/26/21 14:30) Monitor-Rhythm Ecg Trace Only (10/26/21 14:30) Lipid Panel (10/27/21 06:00) Ed Iv/Invasive Line Start (10/26/21 14:30) Lipase (10/26/21 14:30) Bnp Kobi (10/26/21 14:30) Fibrin Degradation Products (10/26/21 14:30) Troponin I Peñuelas (10/26/21 14:30) Aspirin Chewable Tablet (Baby Aspirin Ch (10/26/21 14:30) Lorazepam Injection (Ativan Injection) (10/26/21 14:30) Pantoprazole Injection (Protonix Injecti (10/26/21 14:45) Labetalol Injection (Normodyne Injection (10/26/21 15:15) Arterial Blood Gas (10/26/21 15:29) Medications Given in ED Current Medications Medications Dose Ordered Sig/Gianna Route Start Time Stop Time Status Last Admin Dose Admin Aspirin 324 mg ONCE ONCE PO 10/26/21 14:30 10/26/21 14:31 DC 10/26/21 14:43 324 MG Labetalol HCl 10 mg ONCE ONCE IV 10/26/21 15:15 10/26/21 15:16 DC 10/26/21 15:12 10 MG Lorazepam 1 mg ONCE ONCE IVP 10/26/21 14:30 10/26/21 14:31 DC 10/26/21 14:43 1 MG Pantoprazole 40 mg ONCE ONCE IV 10/26/21 14:45 10/26/21 14:46 DC 10/26/21 14:47 40 MG Vital Signs/I&O 10/26/21 14:24 Temp 35.9 Pulse 97 Resp 20 B/P (MAP) 189/139 (156) Pulse Ox 98 O2 Delivery Room Air Progress Progress Note #1: Time: 14:35 Progress Note No history of coronary disease however he does some appear quite anxious and that might explain some of the tingling in his face. He is trying to stop drinking on his own and has been slowing down but says he has night sweats with this. We have counseled him on access and some alcohol addiction outpatient treatment through [facility] which was his original plan. Trial some Ativan to see if that helps with his anxiety and the tingling in his face. We will see what his blood pressure does in a few minutes. Right now it is 200/152. Hypertensive urgency could also be causing some of his symptoms as well as alcohol withdrawal. Pancreatitis could be causing the pain in his back we will get a D-dimer and chest x-ray as well to think about other possibilities. Progress Note #2: Time: 15:31 Progress Note After the milligram of Ativan the patient is much more calm, his blood pressure came down on its own to 170/123 and his paresthesias in his face faded as well. Suspect anxiety and/or some component of withdrawal syndrome from alcohol. He says he gets shakes, sweats until he wears himself out and falls asleep at night. He drinks anywhere from half of a pint to 1-1/2 pints. He says he is ready to quit drinking. If the rest of his work-up is good for any acute disease then will get a hold of the [facility] addiction counselors and get him an appointment. He did not have any neurologic symptoms and had an NIH of 0 points on arrival. Sensorium was intact. Progress Note #3: Time: 15:41 Progress Note Patient is asymptomatic. His ABG was redrawn after the Ativan because the first 1 became clotted. It still demonstrates some respiratory alkalosis likely due to anxiety attack or withdrawals from alcohol. This would explain the paresthesias in his face. His borderline low oxygen is probably due to the fact that we gave him Ativan. His oxygen saturations been fine. He is alert and feeling much better. Called [facility] and made an appointment with Alcohol Treatment Team. They set him up with an appointment at 0 930 on Tuesday with Krista the social media designer and 10:00 with Sandra. After that they will get him plugged into their program. We will provide him with some Ativan's in case he experiences withdrawal symptoms. Initial ECG Impression Date: October 26, 2021 Initial ECG Impression Time: 14:25 Initial ECG Rate: 90 Initial ECG Rhythm: Normal Sinus Initial ECG Intervals: Normal Initial ECG Impression: Nonspecific Changes Initial ECG Comparisson: Unchanged Comment ST depression half to 1 block in the inferior leads II, III and aVF. No recipro georgina ST elevation. We do not have an EKG on file from previous but [facility] sent an EKG from 05/15/2021 demonstrating the same findings. Diagnostic Imaging Diagonstic Imaging: Xray Plain Films/CT/US/NM/MRI: chest Comments [facility] [address], [facility]. [place], [place] NAME: JERI DAVE [facility] REC#: [id number] PT STATUS: REG ER : 1975 PHYSICIAN: SOCRATES ALEGRE MD ADMIT DATE: 10/26/21/ER Draft Date of Exam:10/26/21 CHEST 1 VIEW, AP/PA ONLY INDICATION: Chest pain. FINDINGS: The lungs are clear. There is no failure, effusion, or pneumothorax. IMPRESSION: Negative. Dictated on workstation # [id number] Dict: 10/26/21 1501 Trans: 10/26/21 1506 [id number] Interpreted by: TOAN SELLERS Electronically signed by: Reviewed: Reviewed by Me Departure Impression Primary Impression: Facial paresthesia Additional Impression: Alcohol dependence with alcohol-induced anxiety disorder Disposition: 01 HOME, SELF-CARE Condition: Stable Departure-Patient Inst. Decision time for Depature: 15:49 Referrals: JUAN CARLOS GRESHAM DO (PCP/Family) Primary Care Physician Patient Instructions: Alcohol Withdrawal (DC) Add. Discharge Instructions: You have an appointment on 10/28/2021 at 0930 at [facility] with Krista social media designer followed by an appointment with Sandra who will help get you plugged into their alcohol treatment program. In the meanwhile if you have any more withdrawal symptoms, facial paresthesias, anxiety you can take1 tablet of Ativan every 6 hours as needed. Mixing Ativan with alcohol can cause unsafe levels of drowsiness so be very careful. Return to the ER if you are having chest pain, shortness of air, weakness or other new worrisome symptoms. All discharge instructions reviewed with patient and/or family. Voiced un derstanding. Scripts Lorazepam (Ativan) 0.5 Mg Tablet 0.5 MG PO Q6H PRN for ANXIETY for 5 Days, #15 TAB 0 Refills Prov: SOCRATES ALEGRE 10/26/21 Copy Copies To 1: VAMSHI RIVERA DO Stroke Onset of Symptoms Date of Onset of Symptoms: October 26, 2021 Time of Symptom Onset: 12:00 Onset of Symptoms: Yes NIH Stroke Scale Assessment Select: Initial Level of Consciousness: 0=Alert (0), Level of Consciousness- Questions: 0=Answers both month/age (0), LOC Commands: 0=Performs both tasks (0), Gaze: Normal (0), Visual Ontiveros: 0=No visual loss (0), Facial Movement (Facial Paresis): 0=Normal symmetrical mnt (0), Motor Function-Arms Right: 0=No drift (0), Motor Function-Arms Left: 0=No drift (0), Motor Function-Legs Right: 0=No drift (0), Motor Function-Legs Left: 0=No drift (0), Limb Ataxia: 0=Absent (0), Sensory: 0=Normal:no loss (0), Best Language: 0=No aphasia (0), Dysarthria: 0=Normal (0), Extinction & Inattention: 0=No abnormality (0), Total: 0 Stroke Thrombolytic Exclusion Age 18 or Over: No Acute intenal hemorrhage: No History of CVA: No Uncontrolled Coagulation Defec: No Intracranial Hemorrhage: No Severe Hypertension: No GI or Bleed: No Subarachnoid Hemorrhage: No Intracranial Neoplasm/Aneurysm: No Oral Anticoagulants: No Surgery or Trauma: No Puncture of Non-Compressible V: No Recent CPR: No Diabetic Hemorrhagic Retinopat: No Organ Biopsy: No Recent Obstetric Delivery: No Glucose: No Significant Hepatic Dysfunctio: No NIH Stoke Scale >22: No Bacterial Endocarditis: No Pericarditis: No Improving Symptoms: No Platelets: No TPA Contraindication: No IV - TPa Received IV - TPa Procedure Performed?: No (Insufficient benefit per risk.) SOCRATES ALEGRE October 26, 2021 14:38
[2021-10-26 14:43] LABS: BASOPHILS # (AUTO) 0.1 10^3/uL (0.0-0.1); BASOPHILS % (AUTO) 1 % (0-10); EOSINOPHILS # (AUTO) 0.1 10^3/uL (0.0-0.3); EOSINOPHILS % (AUTO) 1 % (0-10); HEMATOCRIT 44 % (40-54); HEMOGLOBIN 15.3 g/dL (13.3-17.7); LYMPHOCYTES # (AUTO) 2.3 10^3/uL (1.0-4.0); LYMPHOCYTES % (AUTO) 26 % (12-44); MEAN CORPUSCULAR HEMOGLOBIN 35 pg (25-34); MEAN CORPUSCULAR HGB CONC 35 g/dL (32-36); MEAN CORPUSCULAR VOLUME 98 fL (80-99); MEAN PLATELET VOLUME 10.3 fL (9.0-12.2); MONOCYTES # (AUTO) 0.8 10^3/uL (0.0-1.0); MONOCYTES % (AUTO) 9 % (0-12); NEUTROPHILS # (AUTO) 5.7 10^3/uL (1.8-7.8); NEUTROPHILS % (AUTO) 63 % (42-75); PLATELET COUNT 256 10^3/uL (130-400)
[2021-10-26] MEDS ORDERED: PANTOPRAZOLE 40 MG (PROTONIX) VIAL IV ONE (14:45)
[2021-10-26 14:55] LABS: ALBUMIN 4.7 GM/DL (3.2-4.5); CHLORIDE 105 MMOL/L (98-107); SODIUM 140 MMOL/L (135-145)
[2021-10-26 14:57] LABS: CALCIUM 9.9 MG/DL (8.5-10.1)
[2021-10-26 14:58] LABS: GLUCOSE 131 MG/DL (70-105); TOTAL PROTEIN 7.8 GM/DL (6.4-8.2)
[2021-10-26 14:59] LABS: CARBON DIOXIDE 24 MMOL/L (21-32)
[2021-10-26 15:00] LABS: BILIRUBIN,TOTAL 0.5 MG/DL (0.1-1.0)
[2021-10-26 15:01] LABS: ALKALINE PHOSPHATASE 62 U/L (40-136); GFR ESTIMATED 75
[2021-10-26 15:02] LABS: BUN/CREATININE RATIO 18; INR 0.9 (0.8-1.4); PROTHROMBIN TIME PATIENT 12.7 SEC (12.2-14.7)
[2021-10-26 15:04] LABS: ALANINE AMINOTRANSFERASE 15 U/L (0-55); MAGNESIUM 2.1 MG/DL (1.6-2.4)
[2021-10-26 15:05] LABS: LIPASE 55 U/L (8-78)
--- NOTE | 2021-10-26 15:07 | Diagnostic Imaging Report ---
INDICATION: Chest pain. FINDINGS: The lungs are clear. There is no failure, effusion, or pneumothorax. IMPRESSION: Negative. Dictated by: Dictated on workstation # [id number]
[2021-10-26] MEDS ORDERED: LABETALOL HCL 20 MG/4 ML VIAL IV ONE (15:15)
[2021-10-26 15:34] LABS: ABG BASE EXCESS 1.9 MMOL/L (-2.5-2.5); ABG OXYGEN SATURATION 98 % (94-100); ABG PCO2 37 MMHG (35-45); ABG PH 7.45 (7.37-7.43); ABG PO2 73 MMHG (79-93); ABG TCO2 26.9 MMOL/L (21.0-31.0)
[2021-10-26 15:35] LABS: ALLENS TEST YES-POS; INSPIRED O2 ROOM AIR; PATIENT TEMP 35.9; VENTILATOR NO
[2021-10-26] MEDS ORDERED: LORA-404 PO (16:03)
[2021-10-26 16:24] VITALS: BP 167/123
== END 2021-10-26 16:23 | disposition home or self-care (01) ==
LOC: EDUNIT# 14:18 → ER 14:20
DX: F10.280 Alcohol dependence with alcohol-induced anxiety disorder (principal); I16.0 Hypertensive urgency; K85.20 Alcohol induced acute pancreatitis without necrosis or infection
CPT/HCPCS: 71045; 80053; 82805; 83690; 83735; 83874; 83880; 84484; 85025; 85379; 85610; 85730; 93005; 93041; 99285; G0480; 36415; 80320